=== PATIENT | female | born 1980 | race Two or more races ===

== ENCOUNTER 2020-12-11 11:06 | Inpatient (IN) | payer OTHER, SELFPAY ==
[~2020-12-11] VITALS: Ht 154.9 cm; Wt 121.0 kg
[2020-12-11 11:43] LABS: BASOPHILS % (AUTO) 0 % (0-1); EOSINOPHILS % (AUTO) 3 % (1-7); LYMPHOCYTES % (AUTO) 20 % (22-44); MEAN CORPUSCULAR HEMOGLOBIN 27.4 pg (27.0-34.8); MONOCYTES % (AUTO) 6 % (2-9); NEUTROPHILS % (AUTO) 71 % (42-75); PLATELET COUNT 373 x10^3/uL (130-400); RED BLOOD COUNT 4.43 x10^6/uL (3.82-5.3)
[2020-12-11 11:56] LABS: ALANINE AMINOTRANSFERASE 94 U/L (12-78); ALBUMIN 2.6 g/dL (3.4-5.0); ANION GAP 16 mmol/L (5-15); CALCIUM 8.9 mg/dL (8.5-10.1); CHLORIDE 106 mmol/L (98-107); CREATININE 0.86 mg/dL (0.55-1.02)
[2020-12-11 12:00] LABS: ALKALINE PHOSPHATASE 62 U/L (45-117); BILIRUBIN,TOTAL 0.6 mg/dL (0.2-1.0); TOTAL PROTEIN 7.3 g/dL (6.4-8.2); TROPONIN I < 0.015 ng/mL (0.000-0.045)
--- NOTE | 2020-12-11 12:56 | NUR ---
pt to room at this time
[2020-12-11] MEDS ORDERED: SODIUM CHLORIDE 0.9% 1,000ML IVBOLUS ONE ×2 (14:30→16:30)
--- NOTE | 2020-12-11 15:12 | NUR ---
PT TO RADIOLOGY WITH TECH TRANSPORT
[2020-12-11 15:17] LABS: MICROSCOPIC INDICATED
[2020-12-11] MEDS ORDERED: OMNIPAQUE 350 MG/ML, 100ML BOTTLE ONE (15:24)
--- NOTE | 2020-12-11 15:56 | NUR ---
US AT BEDSIDE.
--- NOTE | 2020-12-11 15:56 | NUR ---
PIV IS IN LEFT AC, FLUSHES W/O DIFFICULTY, IVF PLACED ON PUMP FLUIDS NOT FLOWING ON FREE FLOW 2/2 TO PT BENDING ARM.
[2020-12-11 16:42] LABS: HCT (SEDRATE) 36.9 % (34.6-47.8)
--- NOTE | 2020-12-11 16:53 | NUR ---
report to mac escobar.
[2020-12-11] MEDS ORDERED: DOCUSATE 100 MG CAPSULE PO PRN (18:00)
[2020-12-11] MEDS ORDERED: ENALAPRILAT 1.25 MG/ML, 2ML IVPush PRN (18:00)
[2020-12-11] MEDS ORDERED: POLYETHYLENE GLYCOL 17 GM PACKET PO PRN (18:00)
[2020-12-11] MEDS ORDERED: LABETALOL 5MG/ML, 20ML IVPush PRN (18:00)
[2020-12-11 18:05] VITALS: BP 112/71
[2020-12-11] MEDS ORDERED: METO-282 PO (18:32)
[2020-12-11] MEDS ORDERED: AMOX1TAB64 PO (18:32)
[2020-12-11] MEDS ORDERED: LOSA50TA14 PO (18:32)
[2020-12-11] MEDS ORDERED: NYST1POW5 TP (18:35)
[2020-12-11] MEDS ORDERED: ACET325C6 PO (18:35)
[2020-12-11 18:42] LABS: ANTISTREPTOLYSIN-O TITER 200 IU/mL
[2020-12-11 19:10] LABS: TROPONIN I < 0.015 ng/mL (0.000-0.045)
[2020-12-11 19:25] VITALS: BP 104/69
[2020-12-11] MEDS: AMPICILLIN/SULBACTAM 3 GM in SODIUM CHLORIDE 0.9% 100 ML IV SCH (19:48)
[2020-12-11] MEDS: ENOXAPARIN 30 MG/0.3 ML SQ SCH (20:18)
[2020-12-12 00:09] LABS: TROPONIN I < 0.015 ng/mL (0.000-0.045)
[2020-12-12 00:30] VITALS: BP 104/68
[2020-12-12] MEDS: AMPICILLIN/SULBACTAM 3 GM in SODIUM CHLORIDE 0.9% 100 ML IV SCH ×4 (01:30→20:00)
[2020-12-12 05:10] LABS: BASOPHILS % (AUTO) 1 % (0-1); EOSINOPHILS % (AUTO) 2 % (1-7); LYMPHOCYTES % (AUTO) 17 % (22-44); MEAN CORPUSCULAR HEMOGLOBIN 27.4 pg (27.0-34.8); MEAN CORPUSCULAR HGB CONC 32.4 g/dL (32.4-35.8); MEAN PLATELET VOLUME 8.3 fL (7.4-10.4); MONOCYTES % (AUTO) 8 % (2-9); NEUTROPHILS % (AUTO) 72 % (42-75); PLATELET COUNT 335 x10^3/uL (130-400); RED BLOOD COUNT 4.04 x10^6/uL (3.82-5.3); RED CELL DISTRIBUTION WIDTH 18.2 % (9.6-15.2)
[2020-12-12 05:15] LABS: CHLORIDE 106 mmol/L (98-107)
[2020-12-12 05:32] LABS: ALANINE AMINOTRANSFERASE 70 U/L (12-78); ALBUMIN 2.2 g/dL (3.4-5.0); ALKALINE PHOSPHATASE 59 U/L (45-117); ANION GAP 16 mmol/L (5-15); BILIRUBIN,TOTAL 0.5 mg/dL (0.2-1.0); CALCIUM 8.3 mg/dL (8.5-10.1); TOTAL PROTEIN 6.7 g/dL (6.4-8.2)
[2020-12-12 07:29] VITALS: BP 93/57
[2020-12-12] MEDS: METOPROLOL SUCCINATE 25 MG TAB.ER.24H PO SCH (07:57)
[2020-12-12] MEDS: ENOXAPARIN 30 MG/0.3 ML SQ SCH ×2 (08:18→20:01)
[2020-12-12] MEDS: LOSARTAN 50MG TABLET PO SCH (09:00)
[2020-12-12 12:35] VITALS: BP 118/75
[2020-12-12 13:09] LABS: ABSOLUTE RETICS # 0.098 x10^6/uL (0.5-2.5); HCT (SEDRATE) 32.9 % (34.6-47.8); RED BLOOD COUNT 3.91 x10^6/uL (3.82-5.3); RETICULOCYTE COUNT % 2.51 % (0.5-1.5)
[2020-12-12 13:28] LABS: CALCIUM 8.5 mg/dL (8.5-10.1)
[2020-12-12 19:06] VITALS: BP 119/76
[2020-12-13 00:51] VITALS: BP 105/66
[2020-12-13] MEDS: AMPICILLIN/SULBACTAM 3 GM in SODIUM CHLORIDE 0.9% 100 ML IV SCH ×2 (02:22→07:43)
[2020-12-13 05:53] LABS: BASOPHILS % (AUTO) 1 % (0-1); EOSINOPHILS % (AUTO) 3 % (1-7); LYMPHOCYTES % (AUTO) 22 % (22-44); MEAN CORPUSCULAR HEMOGLOBIN 27.7 pg (27.0-34.8); MEAN CORPUSCULAR HGB CONC 32.9 g/dL (32.4-35.8); MONOCYTES % (AUTO) 11 % (2-9); NEUTROPHILS % (AUTO) 63 % (42-75); PLATELET COUNT 358 x10^3/uL (130-400); RED BLOOD COUNT 3.73 x10^6/uL (3.82-5.3); RED CELL DISTRIBUTION WIDTH 17.6 % (9.6-15.2)
[2020-12-13 06:02] LABS: CHLORIDE 104 mmol/L (98-107)
[2020-12-13 06:10] LABS: ALANINE AMINOTRANSFERASE 53 U/L (12-78); ALBUMIN 2.2 g/dL (3.4-5.0); ALKALINE PHOSPHATASE 53 U/L (45-117); ANION GAP 18 mmol/L (5-15); BILIRUBIN,TOTAL 0.7 mg/dL (0.2-1.0); CALCIUM 8.3 mg/dL (8.5-10.1); CREATININE 0.79 mg/dL (0.55-1.02); TOTAL PROTEIN 6.5 g/dL (6.4-8.2)
[2020-12-13 06:49] VITALS: BP 109/69
[2020-12-13] MEDS: METOPROLOL SUCCINATE 25 MG TAB.ER.24H PO SCH (07:49)
[2020-12-13] MEDS: LOSARTAN 50MG TABLET PO SCH (07:49)
[2020-12-13] MEDS: ENOXAPARIN 30 MG/0.3 ML SQ SCH ×2 (07:51→19:58)
[2020-12-13] MEDS ORDERED: POTASSIUM CHLORIDE 20 MEQ TAB.ER.PRT PO ONE (08:00)
[2020-12-13 09:47] LABS: MICROSCOPIC INDICATED
[2020-12-13 09:50] LABS: POTASSIUM,URINE RANDOM 46 mmol/L
[2020-12-13 09:55] LABS: CHLORIDE,URINE RANDOM < 10 mmol/L; SODIUM,URINE RANDOM < 5 mmol/L
[2020-12-13 13:47] VITALS: BP 70/39
[2020-12-13] MEDS: SODIUM CHLORIDE 0.9% 1,000 ML IV SCH ×3 (14:00→16:48)
[2020-12-13 15:42] VITALS: BP 95/60
[2020-12-13] MEDS: ACETAMINOPHEN 325 MG TABLET PO PRN (16:18)
[2020-12-13 20:05] VITALS: BP 71/45
[2020-12-14 01:05] VITALS: BP 99/64
[2020-12-14] MEDS: SODIUM CHLORIDE 0.9% 1,000 ML IV SCH ×2 (02:22→11:59)
[2020-12-14 05:39] LABS: INTERNATIONAL NORMALIZED RATIO 1.18 (0.93-1.1); PROTHROMBIN TIME 12.6 Seconds (9.6-11.5)
[2020-12-14 05:41] LABS: BASOPHILS % (AUTO) 1 % (0-1); EOSINOPHILS % (AUTO) 4 % (1-7); LYMPHOCYTES % (AUTO) 23 % (22-44); MEAN CORPUSCULAR HEMOGLOBIN 27.8 pg (27.0-34.8); MEAN CORPUSCULAR HGB CONC 33.3 g/dL (32.4-35.8); MEAN PLATELET VOLUME 8.1 fL (7.4-10.4); MONOCYTES % (AUTO) 10 % (2-9); NEUTROPHILS % (AUTO) 62 % (42-75); PLATELET COUNT 353 x10^3/uL (130-400); RED BLOOD COUNT 3.69 x10^6/uL (3.82-5.3); RED CELL DISTRIBUTION WIDTH 17.6 % (9.6-15.2)
[2020-12-14 05:43] LABS: ALANINE AMINOTRANSFERASE 44 U/L (12-78); ALBUMIN 2.1 g/dL (3.4-5.0); ANION GAP 15 mmol/L (5-15); CALCIUM 8.3 mg/dL (8.5-10.1); CHLORIDE 107 mmol/L (98-107)
[2020-12-14 05:46] LABS: ALKALINE PHOSPHATASE 51 U/L (45-117); BILIRUBIN,TOTAL 0.5 mg/dL (0.2-1.0); CREATININE 0.83 mg/dL (0.55-1.02); TOTAL PROTEIN 6.5 g/dL (6.4-8.2)
[2020-12-14 07:06] VITALS: BP 92/57
[2020-12-14] MEDS: ENOXAPARIN 30 MG/0.3 ML SQ SCH ×2 (08:10→21:25)
[2020-12-14 08:11] VITALS: BP 112/70
[2020-12-14] MEDS ORDERED: FENTANYL PF 100 MCG/2ML ONE (09:05)
[2020-12-14] MEDS ORDERED: NALOXONE 1 MG/ML, 2ML ONE (09:05)
[2020-12-14] MEDS ORDERED: MIDAZOLAM 1 MG/ML, 5ML ONE (09:05)
[2020-12-14] MEDS ORDERED: FLUMAZENIL 0.1 MG/1 ML, 5ML ONE (09:05)
[2020-12-14 10:44] VITALS: BP 105/68
[2020-12-14] MEDS ORDERED: IRON SUCROSE COMPLEX 100MG/5ML IV SCH (12:30)
[2020-12-14 13:38] VITALS: BP 96/63
[2020-12-14] MEDS: POTASSIUM CHLORIDE IV SCH (15:18)
[2020-12-14] MEDS: ERGOCALCIFEROL 50,000 UNIT CAPSULE PO SCH (15:18)
[2020-12-14] MEDS: DEXTROSE 5% IV SCH (15:18)
[2020-12-14] MEDS: SODIUM BICARB 8.4% IV SCH (15:18)
[2020-12-14 19:58] VITALS: BP 105/68
[2020-12-15 01:12] VITALS: BP 103/61
[2020-12-15] MEDS: DEXTROSE 5% IV SCH ×2 (05:09→14:11)
[2020-12-15] MEDS: POTASSIUM CHLORIDE IV SCH ×2 (05:09→14:11)
[2020-12-15] MEDS: SODIUM BICARB 8.4% IV SCH ×2 (05:09→14:11)
[2020-12-15 05:19] LABS: BASOPHILS % (AUTO) 1 % (0-1); EOSINOPHILS % (AUTO) 3 % (1-7); LYMPHOCYTES % (AUTO) 24 % (22-44); MEAN CORPUSCULAR HEMOGLOBIN 27.8 pg (27.0-34.8); MEAN CORPUSCULAR HGB CONC 33.5 g/dL (32.4-35.8); MEAN PLATELET VOLUME 8.2 fL (7.4-10.4); MONOCYTES % (AUTO) 13 % (2-9); NEUTROPHILS % (AUTO) 60 % (42-75); PLATELET COUNT 377 x10^3/uL (130-400); RED BLOOD COUNT 3.63 x10^6/uL (3.82-5.3); RED CELL DISTRIBUTION WIDTH 18.1 % (9.6-15.2)
[2020-12-15 05:32] LABS: ANION GAP 14 mmol/L (5-15); CALCIUM 8.4 mg/dL (8.5-10.1); CHLORIDE 102 mmol/L (98-107)
[2020-12-15 05:38] LABS: ALANINE AMINOTRANSFERASE 39 U/L (12-78); ALKALINE PHOSPHATASE 49 U/L (45-117); BILIRUBIN,TOTAL 0.5 mg/dL (0.2-1.0); CREATININE 0.81 mg/dL (0.55-1.02); TOTAL PROTEIN 6.2 g/dL (6.4-8.2)
[2020-12-15] MEDS: CEFTRIAXONE 2 GM in DEXTROSE 5% 50 ML IVPB SCH (07:14)
[2020-12-15 08:25] VITALS: BP 104/63
[2020-12-15] MEDS: ENOXAPARIN 30 MG/0.3 ML SQ SCH ×2 (08:53→20:17)
[2020-12-15] MEDS: ALLOPURINOL 300 MG TABLET PO SCH (10:16)
[2020-12-15 14:52] VITALS: BP 97/54
[2020-12-15 20:12] VITALS: BP 100/64
[2020-12-16] VITALS (8 sets, daily range): BP systolic 73–115; BP diastolic 42–73
[2020-12-16] MEDS: POTASSIUM CHLORIDE IV SCH (03:59)
[2020-12-16] MEDS: DEXTROSE 5% IV SCH (03:59)
[2020-12-16] MEDS: SODIUM BICARB 8.4% IV SCH (03:59)
[2020-12-16 06:05] LABS: MEAN CORPUSCULAR HEMOGLOBIN 27.6 pg (27.0-34.8); MEAN CORPUSCULAR HGB CONC 33.6 g/dL (32.4-35.8); MEAN PLATELET VOLUME 8.4 fL (7.4-10.4); PLATELET COUNT 372 x10^3/uL (130-400); RED BLOOD COUNT 3.46 x10^6/uL (3.82-5.3)
[2020-12-16 06:35] LABS: CALCIUM 7.8 mg/dL (8.5-10.1); CHLORIDE 98 mmol/L (98-107)
[2020-12-16 06:43] LABS: ALANINE AMINOTRANSFERASE 33 U/L (12-78); ALBUMIN 1.8 g/dL (3.4-5.0); ALKALINE PHOSPHATASE 44 U/L (45-117); ANION GAP 11 mmol/L (5-15); BILIRUBIN,TOTAL 0.5 mg/dL (0.2-1.0); CREATININE 0.96 mg/dL (0.55-1.02); TOTAL PROTEIN 5.7 g/dL (6.4-8.2)
[2020-12-16 06:44] LABS: <PLATELET ESTIMATE> ADEQUATE; <PLT MORPHOLOGY> NORMAL PLT MORPH; <RBC MORPHOLOGY> NORMAL; BAND#(MANUAL) 0.41 x10^3/uL; BANDS%(MANUAL) 8 % (0-7); EOS% (MANUAL) 2 % (1-7); LYMPH#(MANUAL) 0.56 x10^3/uL (1-3.4); LYMPHS% (MANUAL) 11 % (22-44); METAMYELOCYTES% (MANUAL) 2 % (0-1); MONOS#(MANUAL) 0.61 x10^3/uL (0.3-2.7); MONOS% (MANUAL) 12 % (2-9); SEG#(MANUAL) 3.32 x10^3/uL (1.8-6.8); SEGS% (MANUAL) 65 % (42-75)
[2020-12-16] MEDS: CEFTRIAXONE 2 GM in DEXTROSE 5% 50 ML IVPB SCH (07:44)
[2020-12-16] MEDS: ALLOPURINOL 300 MG TABLET PO SCH (07:45)
[2020-12-16] MEDS: ENOXAPARIN 30 MG/0.3 ML SQ SCH ×2 (07:45→20:00)
[2020-12-16] MEDS ORDERED: POTASSIUM CHLORIDE 20 MEQ TAB.ER.PRT PO SCH (08:00)
[2020-12-16] MEDS ORDERED: CARVEDILOL 3.125 MG TABLET PO SCH (08:30)
[2020-12-16] MEDS ORDERED: FUROSEMIDE 40 MG/4 ML IV ONE (12:30)
[2020-12-16] MEDS: POTASSIUM CHLORIDE 20 MEQ TAB.ER.PRT PO SCH ×3 (12:40→19:57)
[2020-12-16] MEDS: POTASSIUM CHLORIDE 20 MEQ in SODIUM CHLORIDE 0.9% 1,000 ML IV SCH (12:41)
[2020-12-16] MEDS ORDERED: SODIUM CHLORIDE 0.9%, 500ML IVBOLUS ONE (13:30)
[2020-12-16] MEDS ORDERED: ALBUMIN HUMAN 25% 100 ML IV ONE (13:30)
[2020-12-16] MEDS: MIDODRINE 5 MG TABLET PO SCH ×2 (15:07→19:59)
[2020-12-16] MEDS: GABAPENTIN 300 MG CAPSULE PO PRN (15:21)
[2020-12-16] MEDS ORDERED: FUROSEMIDE 40 MG/4 ML ONE (20:02)
[2020-12-17] VITALS (7 sets, daily range): BP systolic 92–152; BP diastolic 56–78
[2020-12-17] MEDS: POTASSIUM CHLORIDE 20 MEQ in SODIUM CHLORIDE 0.9% 1,000 ML IV SCH (02:53)
[2020-12-17 05:38] LABS: MEAN CORPUSCULAR HEMOGLOBIN 27.7 pg (27.0-34.8); MEAN CORPUSCULAR HGB CONC 33.1 g/dL (32.4-35.8); MEAN PLATELET VOLUME 8.5 fL (7.4-10.4); PLATELET COUNT 389 x10^3/uL (130-400); RED BLOOD COUNT 3.35 x10^6/uL (3.82-5.3); RED CELL DISTRIBUTION WIDTH 18.3 % (9.6-15.2)
[2020-12-17 05:44] LABS: ALBUMIN 2.1 g/dL (3.4-5.0); ANION GAP 11 mmol/L (5-15); CALCIUM 7.6 mg/dL (8.5-10.1); CHLORIDE 104 mmol/L (98-107)
[2020-12-17 05:47] LABS: ALANINE AMINOTRANSFERASE 32 U/L (12-78); ALKALINE PHOSPHATASE 44 U/L (45-117); BILIRUBIN,TOTAL 0.7 mg/dL (0.2-1.0); CREATININE 0.95 mg/dL (0.55-1.02); TOTAL PROTEIN 5.8 g/dL (6.4-8.2)
[2020-12-17 06:02] LABS: BAND#(MANUAL) 0.59 x10^3/uL; BANDS%(MANUAL) 10 % (0-7); EOS#(MANUAL) 0.18 x10^3/uL (0.0-0.4); EOS% (MANUAL) 3 % (1-7); LYMPH#(MANUAL) 0.41 x10^3/uL (1-3.4); LYMPHS% (MANUAL) 7 % (22-44); METAMYELOCYTES# (MANUAL) 0.18 x10^3/uL (0-0); METAMYELOCYTES% (MANUAL) 3 % (0-1); MONOS#(MANUAL) 0.53 x10^3/uL (0.3-2.7); MONOS% (MANUAL) 9 % (2-9); MYELOCYTES# (MANUAL) 0.06 x10^3/uL (0-0); MYELOCYTES% (MANUAL) 1 % (0-0); SEG#(MANUAL) 3.95 x10^3/uL (1.8-6.8); SEGS% (MANUAL) 67 % (42-75)
[2020-12-17 06:03] LABS: <PLATELET ESTIMATE> INCREASED; <PLT MORPHOLOGY> NORMAL PLT MORPH; ANISOCYTOSIS 1+
[2020-12-17 06:25] LABS: CLOSTRIDIUM DIFFICILE ANTIGEN NEGATIVE; CLOSTRIDIUM DIFFICILE TOXIN NEGATIVE (Negative)
[2020-12-17] MEDS ORDERED: MAGNESIUM SULFATE PMX 2GM/50ML 50 ML IV ONE (07:30)
[2020-12-17] MEDS ORDERED: POTASSIUM CHLORIDE 20 MEQ TAB.ER.PRT PO ONE (07:30)
[2020-12-17] MEDS: ENOXAPARIN 30 MG/0.3 ML SQ SCH ×2 (07:59→22:01)
[2020-12-17] MEDS: ONDANSETRON 2MG/ML, 2ML IVPush PRN ×3 (08:15→21:57)
[2020-12-17] MEDS: MIDODRINE 5 MG TABLET PO SCH ×3 (09:12→22:02)
[2020-12-17] MEDS: GABAPENTIN 300 MG CAPSULE PO PRN (09:15)
[2020-12-17] MEDS: ALLOPURINOL 300 MG TABLET PO SCH (09:16)
[2020-12-17] MEDS: CEFTRIAXONE 2 GM in DEXTROSE 5% 50 ML IVPB SCH (10:11)
[2020-12-17] MEDS: ALBUMIN HUMAN 25% 100 ML IV SCH ×3 (10:50→22:03)
[2020-12-17] MEDS: POTASSIUM CHLORIDE 20 MEQ TAB.ER.PRT PO SCH ×4 (10:50→22:02)
[2020-12-17] MEDS: FUROSEMIDE 20 MG/2 ML IV SCH (12:36)
[2020-12-17] MEDS: LOPERAMIDE 2 MG CAPSULE PO PRN ×2 (12:36→22:01)
[2020-12-18] VITALS (7 sets, daily range): BP systolic 100–129; BP diastolic 60–82
[2020-12-18] MEDS: PROMETHAZINE 25 MG/ML, 1ML IM PRN ×3 (00:48→16:49)
[2020-12-18] MEDS: ALBUMIN HUMAN 25% 100 ML IV SCH ×2 (08:28→16:47)
[2020-12-18] MEDS: CEFTRIAXONE 2 GM in DEXTROSE 5% 50 ML IVPB SCH (08:29)
[2020-12-18] MEDS: LOPERAMIDE 2 MG CAPSULE PO PRN (08:29)
[2020-12-18] MEDS: ENOXAPARIN 30 MG/0.3 ML SQ SCH ×2 (08:29→20:01)
[2020-12-18] MEDS: FUROSEMIDE 20 MG/2 ML IV SCH (08:29)
[2020-12-18] MEDS: POTASSIUM CHLORIDE 20 MEQ TAB.ER.PRT PO SCH (08:29)
[2020-12-18] MEDS: ALLOPURINOL 300 MG TABLET PO SCH (08:30)
[2020-12-18] MEDS: MIDODRINE 5 MG TABLET PO SCH ×3 (08:30→20:01)
[2020-12-18 13:17] LABS: ANION GAP 12 mmol/L (5-15); CALCIUM 8.3 mg/dL (8.5-10.1); CHLORIDE 103 mmol/L (98-107)
[2020-12-18] MEDS: ACETAMINOPHEN 325 MG TABLET PO PRN (16:47)
[2020-12-18] MEDS ORDERED: ACETAMINOPHEN 650 MG SUPP PR ONE (19:00)
[2020-12-18] MEDS ORDERED: POTASSIUM CHLORIDE 40 MEQ in SODIUM CHLORIDE 0.9% 500 ML IV ONE (20:00)
[2020-12-18] MEDS ORDERED: MAGNESIUM SULFATE PMX 4GM/100M 100 ML IVPB ONE (20:00)
[2020-12-18] MEDS: ONDANSETRON 2MG/ML, 2ML IVPush PRN (20:05)
[2020-12-19] VITALS (7 sets, daily range): BP systolic 105–139; BP diastolic 65–95
[2020-12-19] MEDS: ALBUMIN HUMAN 25% 100 ML IV SCH ×4 (00:13→20:14)
[2020-12-19 05:24] LABS: BASOPHILS % (AUTO) 0 % (0-1); EOSINOPHILS % (AUTO) 2 % (1-7); LYMPHOCYTES % (AUTO) 13 % (22-44); MEAN CORPUSCULAR HGB CONC 32.8 g/dL (32.4-35.8); MEAN PLATELET VOLUME 8.2 fL (7.4-10.4); MONOCYTES % (AUTO) 11 % (2-9); NEUTROPHILS % (AUTO) 74 % (42-75); PLATELET COUNT 300 x10^3/uL (130-400); RED BLOOD COUNT 3.23 x10^6/uL (3.82-5.3); RED CELL DISTRIBUTION WIDTH 18.5 % (9.6-15.2)
[2020-12-19 05:31] LABS: ANION GAP 12 mmol/L (5-15); CALCIUM 7.8 mg/dL (8.5-10.1); CHLORIDE 106 mmol/L (98-107); CREATININE 0.85 mg/dL (0.55-1.02)
[2020-12-19] MEDS: CEFTRIAXONE 2 GM in DEXTROSE 5% 50 ML IVPB SCH (08:26)
[2020-12-19] MEDS: FUROSEMIDE 20 MG/2 ML IV SCH (08:27)
[2020-12-19] MEDS: ENOXAPARIN 30 MG/0.3 ML SQ SCH ×2 (08:27→20:16)
[2020-12-19] MEDS: ALLOPURINOL 300 MG TABLET PO SCH (08:27)
[2020-12-19] MEDS: MIDODRINE 5 MG TABLET PO SCH ×3 (08:27→20:16)
[2020-12-19] MEDS ORDERED: SULFAMETH./TRIMETHOPRIM SS 400MG/80MG TABLET PO ONE (09:00)
[2020-12-19] MEDS: PROMETHAZINE 25 MG/ML, 1ML IM PRN (09:30)
[2020-12-19] MEDS: GABAPENTIN 300 MG CAPSULE PO PRN ×2 (09:30→17:57)
[2020-12-19] MEDS: POTASSIUM CHLORIDE 20 MEQ in SODIUM CHLORIDE 0.9% 250 ML IV SCH ×2 (10:00→12:21)
[2020-12-19 10:25] LABS: MICROSCOPIC NOT IND
[2020-12-19] MEDS ORDERED: AMPICILLIN/SULBACTAM 3 GM in SODIUM CHLORIDE 0.9% 100 ML IV SCH (12:30)
[2020-12-19] MEDS: ACETAMINOPHEN 325 MG TABLET PO PRN (14:58)
[2020-12-19] MEDS ORDERED: SODIUM CHLORIDE 0.9%, 500ML IVBOLUS ONE (15:30)
[2020-12-19 15:56] LABS: ANION GAP 13 mmol/L (5-15); CALCIUM 8.2 mg/dL (8.5-10.1); CHLORIDE 107 mmol/L (98-107); CREATININE 0.88 mg/dL (0.55-1.02)
[2020-12-19] MEDS ORDERED: SODIUM CHLORIDE 0.9% 1,000 ML IV ONE (18:00)
[2020-12-19] MEDS ORDERED: SODIUM CHLORIDE 0.9% 1,000ML IVBOLUS ONE (20:30)
[2020-12-19] MEDS ORDERED: ACETAMINOPHEN 500 MG TABLET PO ONE (20:30)
[2020-12-19] MEDS ORDERED: VANCOMYCIN PER PHARMACY MC PRN (20:30)
[2020-12-19] MEDS ORDERED: PHARMACOKINETIC MONITORING MC PRN (20:30)
[2020-12-19] MEDS ORDERED: VANCOMYCIN 2,300 MG in SODIUM CHLORIDE 0.9% 500 ML IV ONE (21:00)
[2020-12-19] MEDS: PIPERACILLIN/TAZO 3.375 GM in DEXTROSE 5% 50 ML IV SCH (21:22)
[2020-12-19] MEDS: SODIUM CHLORIDE 0.9% 1,000 ML IV SCH (23:00)
[2020-12-20 00:02] VITALS: BP 100/63
[2020-12-20] MEDS ORDERED: SODIUM CHLORIDE 0.9%, 500ML IVBOLUS ONE (01:30)
[2020-12-20 03:36] LABS: BASOPHILS % (AUTO) 0 % (0-1); EOSINOPHILS % (AUTO) 1 % (1-7); LYMPHOCYTES % (AUTO) 8 % (22-44); MEAN CORPUSCULAR HEMOGLOBIN 27.4 pg (27.0-34.8); MONOCYTES % (AUTO) 3 % (2-9); NEUTROPHILS % (AUTO) 88 % (42-75); PLATELET COUNT 311 x10^3/uL (130-400); RED BLOOD COUNT 3.81 x10^6/uL (3.82-5.3); RED CELL DISTRIBUTION WIDTH 18.6 % (9.6-15.2)
[2020-12-20] MEDS: PIPERACILLIN/TAZO 3.375 GM in DEXTROSE 5% 50 ML IV SCH ×3 (03:39→18:18)
[2020-12-20 03:48] LABS: ANION GAP 14 mmol/L (5-15); CALCIUM 7.8 mg/dL (8.5-10.1); CHLORIDE 111 mmol/L (98-107)
[2020-12-20 07:34] VITALS: BP 112/72
[2020-12-20] MEDS ORDERED: VANCOMYCIN 2,000 MG in SODIUM CHLORIDE 0.9% 500 ML IV SCH (09:00)
[2020-12-20] MEDS ORDERED: SULFAMETH./TRIMETHOPRIM SS 400MG/80MG TABLET PO SCH (09:00)
[2020-12-20] MEDS: ENOXAPARIN 30 MG/0.3 ML SQ SCH ×2 (09:46→20:34)
[2020-12-20] MEDS: FUROSEMIDE 20 MG/2 ML IV SCH (09:51)
[2020-12-20] MEDS: PROMETHAZINE 25 MG/ML, 1ML IM PRN (09:52)
[2020-12-20] MEDS ORDERED: MAGNESIUM SULFATE PMX 2GM/50ML 50 ML IV ONE (10:00)
[2020-12-20] MEDS ORDERED: POTASSIUM PHOSPHATE 44 MEQ in SODIUM CHLORIDE 0.9% 500 ML IV ONE (10:00)
[2020-12-20] MEDS ORDERED: OMNIPAQUE 350 MG/ML, 150 ML BOTTLE ONE (10:59)
[2020-12-20] MEDS: ACETAMINOPHEN 325 MG TABLET PO PRN ×3 (11:04→16:52)
[2020-12-20] MEDS: MIDODRINE 5 MG TABLET PO SCH ×3 (11:09→20:33)
[2020-12-20] MEDS: LOPERAMIDE 2 MG CAPSULE PO PRN (11:09)
[2020-12-20] MEDS: POTASSIUM CHLORIDE 20 MEQ TAB.ER.PRT PO SCH (11:09)
[2020-12-20] MEDS: ALLOPURINOL 300 MG TABLET PO SCH (11:10)
[2020-12-20] MEDS: ALBUMIN HUMAN 25% 100 ML IV SCH ×3 (11:10→21:58)
[2020-12-20 12:59] VITALS: BP 113/70
[2020-12-20] MEDS: DAPTOMYCIN 500 MG in SODIUM CHLORIDE 0.9% 100 ML IV SCH (13:55)
[2020-12-20] MEDS: SODIUM CHLORIDE 0.9% 1,000 ML IV SCH ×2 (13:55→21:00)
[2020-12-20 19:34] VITALS: BP 100/62
[2020-12-21] MEDS: PIPERACILLIN/TAZO 3.375 GM in DEXTROSE 5% 50 ML IV SCH ×4 (00:38→20:11)
[2020-12-21 01:16] VITALS: BP 98/63
[2020-12-21 04:33] LABS: BASOPHILS % (AUTO) 1 % (0-1); EOSINOPHILS % (AUTO) 4 % (1-7); LYMPHOCYTES % (AUTO) 11 % (22-44); MEAN CORPUSCULAR HEMOGLOBIN 27.9 pg (27.0-34.8); MEAN PLATELET VOLUME 8.4 fL (7.4-10.4); MONOCYTES % (AUTO) 7 % (2-9); NEUTROPHILS % (AUTO) 78 % (42-75); PLATELET COUNT 239 x10^3/uL (130-400); RED BLOOD COUNT 2.78 x10^6/uL (3.82-5.3)
[2020-12-21 05:02] LABS: ANION GAP 13 mmol/L (5-15); CALCIUM 7.7 mg/dL (8.5-10.1); CHLORIDE 117 mmol/L (98-107); CREATININE 0.78 mg/dL (0.55-1.02)
[2020-12-21 05:14] LABS: HCT (SEDRATE) 23.5 % (34.6-47.8)
[2020-12-21] MEDS: SODIUM CHLORIDE 0.9% 1,000 ML IV SCH (07:30)
[2020-12-21 08:01] VITALS: BP 96/58
[2020-12-21] MEDS: ALBUMIN HUMAN 25% 100 ML IV SCH (08:32)
[2020-12-21] MEDS: SPIRONOLACTONE 25 MG TABLET PO SCH (08:33)
[2020-12-21] MEDS: POTASSIUM CHLORIDE 20 MEQ TAB.ER.PRT PO SCH (08:33)
[2020-12-21] MEDS: ALLOPURINOL 300 MG TABLET PO SCH (08:33)
[2020-12-21] MEDS: MIDODRINE 5 MG TABLET PO SCH ×3 (08:33→20:20)
[2020-12-21] MEDS: FUROSEMIDE 20 MG/2 ML IV SCH (08:33)
[2020-12-21] MEDS: ENOXAPARIN 30 MG/0.3 ML SQ SCH ×2 (08:34→20:26)
[2020-12-21] MEDS: POTASSIUM CHLORIDE 20 MEQ in SODIUM CHLORIDE 0.9% 250 ML IV SCH (11:08)
[2020-12-21] MEDS: ACETAMINOPHEN 325 MG TABLET PO PRN (12:49)
[2020-12-21] MEDS: LOPERAMIDE 2 MG CAPSULE PO PRN (12:49)
[2020-12-21] MEDS: ERGOCALCIFEROL 50,000 UNIT CAPSULE PO SCH (12:49)
[2020-12-21] MEDS: DAPTOMYCIN 500 MG in SODIUM CHLORIDE 0.9% 100 ML IV SCH (16:15)
[2020-12-21 16:16] VITALS: BP 107/65
[2020-12-21] MEDS ORDERED: MAGNESIUM SULFATE PMX 2GM/50ML 50 ML IV ONE (16:30)
[2020-12-21] MEDS ORDERED: POTASSIUM CHLORIDE 40 MEQ in SODIUM CHLORIDE 0.9% 500 ML IV ONE (16:30)
[2020-12-21 20:00] VITALS: BP 98/63
[2020-12-21] MEDS ORDERED: POTASSIUM CHLORIDE 20 MEQ TAB.ER.PRT PO ONE (20:00)
[2020-12-21] MEDS: PROMETHAZINE 25 MG/ML, 1ML IM PRN (20:29)
[2020-12-22 01:22] VITALS: BP 99/63
[2020-12-22] MEDS: PIPERACILLIN/TAZO 3.375 GM in DEXTROSE 5% 50 ML IV SCH ×2 (02:28→09:00)
[2020-12-22] MEDS: POTASSIUM CHLORIDE 20 MEQ in SODIUM CHLORIDE 0.9% 250 ML IV SCH ×4 (03:44→22:18)
[2020-12-22 06:24] LABS: ALBUMIN 3.3 g/dL (3.4-5.0); ANION GAP 10 mmol/L (5-15); CALCIUM 7.9 mg/dL (8.5-10.1); CHLORIDE 119 mmol/L (98-107); CREATININE 0.85 mg/dL (0.55-1.02)
[2020-12-22 06:26] LABS: BASOPHILS % (AUTO) 1 % (0-1); EOSINOPHILS % (AUTO) 4 % (1-7); LYMPHOCYTES % (AUTO) 18 % (22-44); MEAN CORPUSCULAR HGB CONC 32.6 g/dL (32.4-35.8); MEAN PLATELET VOLUME 8.5 fL (7.4-10.4); MONOCYTES % (AUTO) 7 % (2-9); NEUTROPHILS % (AUTO) 70 % (42-75); PLATELET COUNT 259 x10^3/uL (130-400); RED CELL DISTRIBUTION WIDTH 19.4 % (9.6-15.2)
[2020-12-22 06:55] VITALS: BP 113/70
[2020-12-22] MEDS: SODIUM CHLORIDE 0.9% 1,000 ML IV SCH (09:00)
[2020-12-22] MEDS: ENOXAPARIN 30 MG/0.3 ML SQ SCH ×2 (09:01→22:00)
[2020-12-22] MEDS: MIDODRINE 5 MG TABLET PO SCH ×3 (09:02→22:00)
[2020-12-22] MEDS: POTASSIUM CHLORIDE 20 MEQ TAB.ER.PRT PO SCH (09:02)
[2020-12-22] MEDS: SPIRONOLACTONE 25 MG TABLET PO SCH (09:03)
[2020-12-22] MEDS: FUROSEMIDE 20 MG TABLET PO SCH (09:03)
[2020-12-22] MEDS: ALLOPURINOL 300 MG TABLET PO SCH (09:03)
[2020-12-22] MEDS ORDERED: POTASSIUM CHLORIDE 40 MEQ in SODIUM CHLORIDE 0.9% 500 ML IV ONE (12:00)
[2020-12-22 13:18] LABS: BILIRUBIN, DIRECT 1.1 mg/dL (0.1-0.2)
[2020-12-22 13:20] LABS: BILIRUBIN,INDIRECT 0.7 mg/dL (0.0-2.0); BILIRUBIN,TOTAL 1.8 mg/dL (0.2-1.0); TOTAL PROTEIN 5.9 g/dL (6.4-8.2)
[2020-12-22 13:22] LABS: ALBUMIN 3.3 g/dL (3.4-5.0)
[2020-12-22] MEDS: DAPTOMYCIN 500 MG in SODIUM CHLORIDE 0.9% 100 ML IV SCH (15:22)
[2020-12-22] MEDS ORDERED: D5%-0.45NACL+KCL 40MEQ 1,000 ML IV SCH (16:00)
[2020-12-22 21:57] VITALS: BP 104/66
[2020-12-22] MEDS: LOPERAMIDE 2 MG CAPSULE PO PRN (22:00)
[2020-12-22] MEDS: ONDANSETRON 2MG/ML, 2ML IVPush PRN (23:47)
[2020-12-23] MEDS: POTASSIUM CHLORIDE 20 MEQ in SODIUM CHLORIDE 0.9% 250 ML IV SCH ×3 (03:45→11:01)
[2020-12-23 03:46] VITALS: BP 149/80
[2020-12-23 05:18] LABS: BASOPHILS % (AUTO) 1 % (0-1); EOSINOPHILS % (AUTO) 3 % (1-7); LYMPHOCYTES % (AUTO) 17 % (22-44); MEAN CORPUSCULAR HEMOGLOBIN 28.4 pg (27.0-34.8); MEAN CORPUSCULAR HGB CONC 33.2 g/dL (32.4-35.8); MEAN PLATELET VOLUME 8.6 fL (7.4-10.4); MONOCYTES % (AUTO) 8 % (2-9); NEUTROPHILS % (AUTO) 71 % (42-75); PLATELET COUNT 257 x10^3/uL (130-400); RED BLOOD COUNT 2.95 x10^6/uL (3.82-5.3)
[2020-12-23] MEDS: ONDANSETRON 2MG/ML, 2ML IVPush PRN ×2 (05:19→15:59)
[2020-12-23 05:22] LABS: ANION GAP 10 mmol/L (5-15); CALCIUM 8.2 mg/dL (8.5-10.1); CHLORIDE 120 mmol/L (98-107)
[2020-12-23 05:28] LABS: ALANINE AMINOTRANSFERASE 47 U/L (12-78); ALKALINE PHOSPHATASE 61 U/L (45-117); BILIRUBIN,TOTAL 2.2 mg/dL (0.2-1.0); CREATININE 0.85 mg/dL (0.55-1.02); TOTAL PROTEIN 5.9 g/dL (6.4-8.2)
[2020-12-23] MEDS: LOPERAMIDE 2 MG CAPSULE PO PRN (05:33)
[2020-12-23 07:15] VITALS: BP 118/60
[2020-12-23] MEDS ORDERED: MAGNESIUM SULFATE PMX 2GM/50ML 50 ML IV ONE (08:00)
[2020-12-23] MEDS: SPIRONOLACTONE 25 MG TABLET PO SCH (08:47)
[2020-12-23] MEDS: FUROSEMIDE 20 MG TABLET PO SCH ×2 (08:49→21:55)
[2020-12-23] MEDS: ENOXAPARIN 30 MG/0.3 ML SQ SCH ×2 (08:51→21:56)
[2020-12-23] MEDS: ALLOPURINOL 300 MG TABLET PO SCH (09:15)
[2020-12-23] MEDS: MIDODRINE 5 MG TABLET PO SCH ×3 (09:15→21:54)
[2020-12-23] MEDS: GABAPENTIN 300 MG CAPSULE PO PRN (11:08)
[2020-12-23] MEDS: ACETAMINOPHEN 325 MG TABLET PO PRN (11:08)
[2020-12-23] MEDS: PROMETHAZINE 25 MG/ML, 1ML IM PRN (12:09)
[2020-12-23 12:25] VITALS: BP 134/82
[2020-12-23] MEDS ORDERED: POTASSIUM CHLORIDE 40 MEQ in SODIUM CHLORIDE 0.9% 500 ML IV ONE (13:00)
[2020-12-23] MEDS: DAPTOMYCIN 500 MG in SODIUM CHLORIDE 0.9% 100 ML IV SCH (13:29)
[2020-12-23 21:46] VITALS: BP 127/80
[2020-12-24 00:57] VITALS: BP 121/83
[2020-12-24] MEDS: GABAPENTIN 300 MG CAPSULE PO PRN (02:03)
[2020-12-24 05:33] LABS: BASOPHILS % (AUTO) 1 % (0-1); EOSINOPHILS % (AUTO) 2 % (1-7); LYMPHOCYTES % (AUTO) 15 % (22-44); MEAN CORPUSCULAR HEMOGLOBIN 28.4 pg (27.0-34.8); MEAN CORPUSCULAR HGB CONC 32.7 g/dL (32.4-35.8); MONOCYTES % (AUTO) 7 % (2-9); NEUTROPHILS % (AUTO) 76 % (42-75); PLATELET COUNT 278 x10^3/uL (130-400); RED BLOOD COUNT 3.14 x10^6/uL (3.82-5.3); RED CELL DISTRIBUTION WIDTH 19.7 % (9.6-15.2)
[2020-12-24 05:38] LABS: CHLORIDE 115 mmol/L (98-107)
[2020-12-24 05:47] LABS: ALANINE AMINOTRANSFERASE 37 U/L (12-78); ALBUMIN 2.9 g/dL (3.4-5.0); ALKALINE PHOSPHATASE 58 U/L (45-117); ANION GAP 11 mmol/L (5-15); BILIRUBIN,TOTAL 3.4 mg/dL (0.2-1.0); CALCIUM 8.8 mg/dL (8.5-10.1); CREATININE 0.89 mg/dL (0.55-1.02); TOTAL PROTEIN 5.6 g/dL (6.4-8.2)
[2020-12-24 07:20] VITALS: BP 113/75
[2020-12-24] MEDS: ENOXAPARIN 30 MG/0.3 ML SQ SCH ×2 (09:00→20:59)
[2020-12-24] MEDS ORDERED: POTASSIUM CHLORIDE 40 MEQ in SODIUM CHLORIDE 0.9% 500 ML IV ONE (09:00)
[2020-12-24] MEDS: SPIRONOLACTONE 25 MG TABLET PO SCH (09:16)
[2020-12-24] MEDS: MIDODRINE 5 MG TABLET PO SCH ×3 (09:16→20:58)
[2020-12-24] MEDS: ALLOPURINOL 300 MG TABLET PO SCH (09:16)
[2020-12-24] MEDS: FUROSEMIDE 20 MG TABLET PO SCH ×2 (09:16→20:58)
[2020-12-24] MEDS ORDERED: POTASSIUM PHOSPHATE 22 MEQ in SODIUM CHLORIDE 0.9% 500 ML IV ONE (12:00)
[2020-12-24] MEDS: ONDANSETRON 2MG/ML, 2ML IVPush PRN ×2 (12:01→20:57)
[2020-12-24 12:05] VITALS: BP 127/80
[2020-12-24] MEDS: LOPERAMIDE 2 MG CAPSULE PO PRN (12:10)
[2020-12-24 13:20] LABS: HCG UR SG 1.016 (1.003-1.030)
[2020-12-24 13:21] LABS: MICROSCOPIC INDICATED
[2020-12-24 13:24] LABS: CHLORIDE,URINE RANDOM 76 mmol/L; POTASSIUM,URINE RANDOM 66 mmol/L; SODIUM,URINE RANDOM 22 mmol/L
[2020-12-24] MEDS: DAPTOMYCIN 500 MG in SODIUM CHLORIDE 0.9% 100 ML IV SCH (15:30)
[2020-12-24] MEDS ORDERED: OMNIPAQUE 350 MG/ML, 100ML BOTTLE ONE (16:24)
[2020-12-24] MEDS: PROMETHAZINE 25 MG/ML, 1ML IM PRN (17:38)
[2020-12-24 18:40] VITALS: BP 126/66
[2020-12-24 21:09] VITALS: BP 140/83
[2020-12-25 00:27] VITALS: BP 132/73
[2020-12-25 05:29] LABS: ALBUMIN 2.6 g/dL (3.4-5.0); ANION GAP 10 mmol/L (5-15); CALCIUM 7.8 mg/dL (8.5-10.1); CHLORIDE 114 mmol/L (98-107)
[2020-12-25 05:31] LABS: MEAN CORPUSCULAR HEMOGLOBIN 27.6 pg (27.0-34.8); MEAN CORPUSCULAR HGB CONC 32.2 g/dL (32.4-35.8); MEAN PLATELET VOLUME 8.7 fL (7.4-10.4); PLATELET COUNT 314 x10^3/uL (130-400); RED BLOOD COUNT 3.11 x10^6/uL (3.82-5.3); RED CELL DISTRIBUTION WIDTH 19.7 % (9.6-15.2)
[2020-12-25 05:31] LABS: CREATININE 1.19 mg/dL (0.55-1.02)
[2020-12-25 06:43] LABS: BAND#(MANUAL) 0.88 x10^3/uL; BANDS%(MANUAL) 7 % (0-7); LYMPH#(MANUAL) 0.88 x10^3/uL (1-3.4); LYMPHS% (MANUAL) 7 % (22-44); METAMYELOCYTES# (MANUAL) 0.38 x10^3/uL (0-0); METAMYELOCYTES% (MANUAL) 3 % (0-1); MONOS% (MANUAL) 8 % (2-9); SEG#(MANUAL) 9.38 x10^3/uL (1.8-6.8); SEGS% (MANUAL) 75 % (42-75)
[2020-12-25 06:44] LABS: ANISOCYTOSIS 1+; POLYCHROMASIA 1+
[2020-12-25 06:45] LABS: <PLATELET ESTIMATE> ADEQUATE; <PLT MORPHOLOGY> NORMAL PLT MORPH; TEAR DROPS 1+
[2020-12-25 07:50] VITALS: BP 102/66
[2020-12-25] MEDS: ALLOPURINOL 300 MG TABLET PO SCH (09:18)
[2020-12-25] MEDS: MIDODRINE 5 MG TABLET PO SCH ×3 (09:18→22:59)
[2020-12-25] MEDS: FUROSEMIDE 20 MG TABLET PO SCH ×2 (09:19→22:59)
[2020-12-25] MEDS: SPIRONOLACTONE 25 MG TABLET PO SCH (09:19)
[2020-12-25] MEDS: PIPERACILLIN/TAZO 3.375 GM in DEXTROSE 5% 50 ML IVPB SCH ×2 (09:20→16:30)
[2020-12-25] MEDS: ENOXAPARIN 30 MG/0.3 ML SQ SCH ×2 (09:26→22:58)
[2020-12-25 09:30] LABS: HCT (SEDRATE) 27.2 % (34.6-47.8)
[2020-12-25 09:41] LABS: C-REACTIVE PROTEIN, QUANT 9.3 mg/dL (0.02-0.49)
[2020-12-25 12:23] VITALS: BP 127/82
[2020-12-25 13:35] LABS: MICROSCOPIC INDICATED
[2020-12-25 13:37] LABS: CHLORIDE,URINE RANDOM 30 mmol/L; POTASSIUM,URINE RANDOM 52 mmol/L; SODIUM,URINE RANDOM 8 mmol/L
[2020-12-25 19:01] VITALS: BP 129/78
[2020-12-25] MEDS: SODIUM BICARBONATE 650 MG TABLET PO SCH (22:59)
[2020-12-26] MEDS: PIPERACILLIN/TAZO 3.375 GM in DEXTROSE 5% 50 ML IVPB SCH ×3 (00:30→16:22)
[2020-12-26 01:31] VITALS: BP 126/77
[2020-12-26] MEDS ORDERED: LIDOCAINE-MPF 1%, 5ML ONE (04:13)
[2020-12-26 06:48] VITALS: BP 143/76
[2020-12-26] MEDS: ENOXAPARIN 30 MG/0.3 ML SQ SCH ×2 (09:59→20:59)
[2020-12-26] MEDS: SPIRONOLACTONE 25 MG TABLET PO SCH (09:59)
[2020-12-26] MEDS: MIDODRINE 5 MG TABLET PO SCH ×3 (10:00→20:56)
[2020-12-26] MEDS: SODIUM BICARBONATE 650 MG TABLET PO SCH ×2 (10:00→20:56)
[2020-12-26] MEDS: ALLOPURINOL 300 MG TABLET PO SCH (10:00)
[2020-12-26] MEDS: FUROSEMIDE 20 MG TABLET PO SCH ×2 (10:01→20:56)
[2020-12-26 10:30] LABS: MEAN CORPUSCULAR HEMOGLOBIN 28.1 pg (27.0-34.8); MEAN CORPUSCULAR HGB CONC 31.7 g/dL (32.4-35.8); MEAN PLATELET VOLUME 8.5 fL (7.4-10.4); PLATELET COUNT 367 x10^3/uL (130-400); RED CELL DISTRIBUTION WIDTH 19.8 % (9.6-15.2)
[2020-12-26 10:42] LABS: ANION GAP 13 mmol/L (5-15); CALCIUM 8.2 mg/dL (8.5-10.1); CHLORIDE 111 mmol/L (98-107); CREATININE 1.53 mg/dL (0.55-1.02)
[2020-12-26 10:43] LABS: ALBUMIN 2.5 g/dL (3.4-5.0)
[2020-12-26 10:49] LABS: ANISOCYTOSIS 1+; BAND#(MANUAL) 0.76 x10^3/uL; BANDS%(MANUAL) 6 % (0-7); EOS#(MANUAL) 0.13 x10^3/uL (0.0-0.4); EOS% (MANUAL) 1 % (1-7); LYMPH#(MANUAL) 1.39 x10^3/uL (1-3.4); LYMPHS% (MANUAL) 11 % (22-44); METAMYELOCYTES# (MANUAL) 0.25 x10^3/uL (0-0); METAMYELOCYTES% (MANUAL) 2 % (0-1); MONOS#(MANUAL) 0.76 x10^3/uL (0.3-2.7); MONOS% (MANUAL) 6 % (2-9); MYELOCYTES# (MANUAL) 0.13 x10^3/uL (0-0); MYELOCYTES% (MANUAL) 1 % (0-0); POLYCHROMASIA 1+; SEGS% (MANUAL) 73 % (42-75)
[2020-12-26 10:55] LABS: <PLATELET ESTIMATE> ADEQUATE; <PLT MORPHOLOGY> NORMAL PLT MORPH
[2020-12-26 13:28] VITALS: BP 123/78
[2020-12-26] MEDS: POTASSIUM CHLORIDE 20 MEQ TAB.ER.PRT PO SCH (16:22)
[2020-12-26] MEDS: ONDANSETRON 2MG/ML, 2ML IVPush PRN (16:34)
[2020-12-26 20:13] VITALS: BP 107/63
[2020-12-26 20:53] VITALS: BP 106/72
[2020-12-27] MEDS: PIPERACILLIN/TAZO 3.375 GM in DEXTROSE 5% 50 ML IVPB SCH ×3 (00:43→16:06)
[2020-12-27 01:54] VITALS: BP 100/57
[2020-12-27 05:36] LABS: MEAN CORPUSCULAR HEMOGLOBIN 28.9 pg (27.0-34.8); MEAN CORPUSCULAR HGB CONC 33.1 g/dL (32.4-35.8); PLATELET COUNT 353 x10^3/uL (130-400); RED BLOOD COUNT 2.91 x10^6/uL (3.82-5.3)
[2020-12-27 05:47] LABS: CHLORIDE 109 mmol/L (98-107)
[2020-12-27 05:51] LABS: ANION GAP 11 mmol/L (5-15); CALCIUM 8.2 mg/dL (8.5-10.1); CREATININE 1.35 mg/dL (0.55-1.02)
[2020-12-27 06:08] LABS: ANISOCYTOSIS 1+; BAND#(MANUAL) 0.76 x10^3/uL; BANDS%(MANUAL) 7 % (0-7); EOS#(MANUAL) 0.11 x10^3/uL (0.0-0.4); EOS% (MANUAL) 1 % (1-7); LYMPH#(MANUAL) 0.65 x10^3/uL (1-3.4); LYMPHS% (MANUAL) 6 % (22-44); METAMYELOCYTES# (MANUAL) 0.33 x10^3/uL (0-0); METAMYELOCYTES% (MANUAL) 3 % (0-1); MONOS#(MANUAL) 0.11 x10^3/uL (0.3-2.7); MONOS% (MANUAL) 1 % (2-9); MYELOCYTES# (MANUAL) 0.11 x10^3/uL (0-0); MYELOCYTES% (MANUAL) 1 % (0-0); POLYCHROMASIA 1+; SEG#(MANUAL) 8.83 x10^3/uL (1.8-6.8); SEGS% (MANUAL) 81 % (42-75)
[2020-12-27 06:10] LABS: <PLATELET ESTIMATE> ADEQUATE; <PLT MORPHOLOGY> NORMAL PLT MORPH
[2020-12-27] MEDS ORDERED: MAGNESIUM SULFATE PMX 2GM/50ML 50 ML IV ONE (07:30)
[2020-12-27] MEDS: ONDANSETRON 2MG/ML, 2ML IVPush PRN ×2 (07:47→20:44)
[2020-12-27] MEDS: ENOXAPARIN 30 MG/0.3 ML SQ SCH ×2 (07:48→20:44)
[2020-12-27 08:00] VITALS: BP 124/71
[2020-12-27] MEDS: MIDODRINE 5 MG TABLET PO SCH ×5 (09:00→20:44)
[2020-12-27] MEDS: FUROSEMIDE 20 MG TABLET PO SCH ×2 (09:05→20:45)
[2020-12-27] MEDS: SODIUM BICARBONATE 650 MG TABLET PO SCH ×3 (11:15→20:45)
[2020-12-27] MEDS: SPIRONOLACTONE 25 MG TABLET PO SCH ×2 (11:16→15:04)
[2020-12-27] MEDS: POTASSIUM CHLORIDE 20 MEQ TAB.ER.PRT PO SCH ×3 (11:16→16:00)
[2020-12-27] MEDS: ALLOPURINOL 300 MG TABLET PO SCH ×2 (11:16→15:04)
[2020-12-27] MEDS ORDERED: PROCHLORPERAZINE 5 MG/ML, 2ML IVPush ONE (12:00)
[2020-12-27 12:17] VITALS: BP 100/88
[2020-12-27] MEDS ORDERED: POTASSIUM CHLORIDE 40 MEQ in SODIUM CHLORIDE 0.9% 500 ML IV ONE (16:00)
[2020-12-27] MEDS ORDERED: MORPHINE SULFATE 4 MG/ML, 1ML IVPush PRN (16:00)
[2020-12-27 16:05] LABS: MICROSCOPIC INDICATED
[2020-12-27 16:07] LABS: CHLORIDE,URINE RANDOM 69 mmol/L; POTASSIUM,URINE RANDOM 42 mmol/L; SODIUM,URINE RANDOM 34 mmol/L
[2020-12-27 16:14] LABS: CREATININE,URINE RANDOM 72.2 mg/dL
[2020-12-27 19:34] VITALS: BP 109/61
[2020-12-27 20:40] VITALS: BP 101/63
[2020-12-27] MEDS: ACETAMINOPHEN 325 MG TABLET PO PRN (20:44)
[2020-12-28] MEDS: PIPERACILLIN/TAZO 3.375 GM in DEXTROSE 5% 50 ML IVPB SCH ×2 (00:36→08:01)
[2020-12-28 01:01] VITALS: BP 111/71
[2020-12-28] MEDS: ONDANSETRON 2MG/ML, 2ML IVPush PRN ×2 (05:15→18:19)
[2020-12-28 05:34] LABS: MEAN CORPUSCULAR HEMOGLOBIN 28.6 pg (27.0-34.8); MEAN CORPUSCULAR HGB CONC 32.7 g/dL (32.4-35.8); MEAN PLATELET VOLUME 8.3 fL (7.4-10.4); PLATELET COUNT 316 x10^3/uL (130-400); RED BLOOD COUNT 2.95 x10^6/uL (3.82-5.3); RED CELL DISTRIBUTION WIDTH 19.5 % (9.6-15.2)
[2020-12-28 05:44] LABS: CHLORIDE 109 mmol/L (98-107)
[2020-12-28 05:52] LABS: ALANINE AMINOTRANSFERASE 47 U/L (12-78); ALBUMIN 2.2 g/dL (3.4-5.0); ALKALINE PHOSPHATASE 68 U/L (45-117); ANION GAP 12 mmol/L (5-15); BILIRUBIN,TOTAL 7.7 mg/dL (0.2-1.0); CALCIUM 7.9 mg/dL (8.5-10.1); CREATININE 1.36 mg/dL (0.55-1.02); TOTAL PROTEIN 5.5 g/dL (6.4-8.2)
[2020-12-28 06:09] LABS: BAND#(MANUAL) 0.94 x10^3/uL; BANDS%(MANUAL) 8 % (0-7); LYMPH#(MANUAL) 0.94 x10^3/uL (1-3.4); LYMPHS% (MANUAL) 8 % (22-44); METAMYELOCYTES# (MANUAL) 0.47 x10^3/uL (0-0); METAMYELOCYTES% (MANUAL) 4 % (0-1); MONOS#(MANUAL) 0.47 x10^3/uL (0.3-2.7); MONOS% (MANUAL) 4 % (2-9); SEG#(MANUAL) 8.89 x10^3/uL (1.8-6.8); SEGS% (MANUAL) 76 % (42-75)
[2020-12-28 06:10] LABS: <PLATELET ESTIMATE> ADEQUATE; <PLT MORPHOLOGY> NORMAL PLT MORPH; ANISOCYTOSIS 1+; POLYCHROMASIA 1+
[2020-12-28 07:16] VITALS: BP 100/67
[2020-12-28 07:54] VITALS: BP 117/72
[2020-12-28] MEDS: MIDODRINE 5 MG TABLET PO SCH ×3 (08:00→21:02)
[2020-12-28] MEDS: FUROSEMIDE 20 MG TABLET PO SCH ×2 (08:00→21:03)
[2020-12-28] MEDS: ENOXAPARIN 30 MG/0.3 ML SQ SCH ×2 (10:56→23:04)
[2020-12-28] MEDS: SODIUM BICARBONATE 650 MG TABLET PO SCH (10:57)
[2020-12-28] MEDS: POTASSIUM CHLORIDE 20 MEQ TAB.ER.PRT PO SCH ×2 (10:57→17:24)
[2020-12-28] MEDS: PROMETHAZINE 25 MG/ML, 1ML IM PRN (11:04)
[2020-12-28 13:05] VITALS: BP 112/74
[2020-12-28] MEDS: ALLOPURINOL 300 MG TABLET PO SCH (13:23)
[2020-12-28] MEDS: ERGOCALCIFEROL 50,000 UNIT CAPSULE PO SCH (13:23)
[2020-12-28] MEDS: POTASSIUM ACID PHOSPHATE 500 MG TABLET.SOL PO SCH ×2 (13:23→21:00)
[2020-12-28] MEDS: SPIRONOLACTONE 25 MG TABLET PO SCH (13:23)
[2020-12-28 15:21] LABS: BILIRUBIN, DIRECT 6.3 mg/dL (0.1-0.2)
[2020-12-28 15:22] LABS: BILIRUBIN,INDIRECT 1.4 mg/dL (0.0-2.0); BILIRUBIN,TOTAL 7.7 mg/dL (0.2-1.0)
[2020-12-28 20:46] VITALS: BP 104/69
[2020-12-28 21:01] VITALS: BP 103/68
[2020-12-28] MEDS: ACETAMINOPHEN 325 MG TABLET PO PRN (21:03)
[2020-12-29 01:19] VITALS: BP 105/70
[2020-12-29] MEDS: ONDANSETRON 2MG/ML, 2ML IVPush PRN ×2 (05:07→23:55)
[2020-12-29 05:12] LABS: MEAN CORPUSCULAR HEMOGLOBIN 29.2 pg (27.0-34.8); MEAN PLATELET VOLUME 8.4 fL (7.4-10.4); PLATELET COUNT 305 x10^3/uL (130-400); RED BLOOD COUNT 2.89 x10^6/uL (3.82-5.3); RED CELL DISTRIBUTION WIDTH 20.1 % (9.6-15.2)
[2020-12-29 05:15] LABS: ALBUMIN 2.2 g/dL (3.4-5.0); ANION GAP 14 mmol/L (5-15); CALCIUM 7.7 mg/dL (8.5-10.1); CHLORIDE 107 mmol/L (98-107)
[2020-12-29] MEDS: ACETAMINOPHEN 325 MG TABLET PO PRN (05:15)
[2020-12-29 05:19] LABS: ALANINE AMINOTRANSFERASE 52 U/L (12-78); ALKALINE PHOSPHATASE 67 U/L (45-117); BILIRUBIN,TOTAL 7.1 mg/dL (0.2-1.0); CREATININE 1.48 mg/dL (0.55-1.02); TOTAL PROTEIN 5.7 g/dL (6.4-8.2)
[2020-12-29 05:47] LABS: BAND#(MANUAL) 0.73 x10^3/uL; BANDS%(MANUAL) 6 % (0-7); LYMPH#(MANUAL) 1.82 x10^3/uL (1-3.4); LYMPHS% (MANUAL) 15 % (22-44); METAMYELOCYTES# (MANUAL) 0.36 x10^3/uL (0-0); METAMYELOCYTES% (MANUAL) 3 % (0-1); MONOS#(MANUAL) 0.48 x10^3/uL (0.3-2.7); MONOS% (MANUAL) 4 % (2-9); SEG#(MANUAL) 8.71 x10^3/uL (1.8-6.8); SEGS% (MANUAL) 72 % (42-75)
[2020-12-29 05:48] LABS: ANISOCYTOSIS 1+; POLYCHROMASIA 1+; STOMATOCYTES 1+
[2020-12-29 05:49] LABS: <PLATELET ESTIMATE> ADEQUATE; <PLT MORPHOLOGY> NORMAL PLT MORPH
[2020-12-29 07:29] VITALS: BP 102/60
[2020-12-29 09:23] LABS: ALBUMIN 2.1 g/dL (3.4-5.0); BILIRUBIN, DIRECT 5.5 mg/dL (0.1-0.2)
[2020-12-29 09:25] LABS: BILIRUBIN,INDIRECT 1.6 mg/dL (0.0-2.0); BILIRUBIN,TOTAL 7.1 mg/dL (0.2-1.0); TOTAL PROTEIN 5.5 g/dL (6.4-8.2)
[2020-12-29] MEDS: POTASSIUM ACID PHOSPHATE 500 MG TABLET.SOL PO SCH ×2 (09:53→20:34)
[2020-12-29] MEDS: MIDODRINE 5 MG TABLET PO SCH ×3 (09:53→20:35)
[2020-12-29] MEDS: ENOXAPARIN 30 MG/0.3 ML SQ SCH ×2 (09:53→23:51)
[2020-12-29] MEDS: POTASSIUM CHLORIDE 20 MEQ TAB.ER.PRT PO SCH ×2 (09:54→16:39)
[2020-12-29] MEDS: SPIRONOLACTONE 25 MG TABLET PO SCH (09:54)
[2020-12-29] MEDS: ALLOPURINOL 300 MG TABLET PO SCH (09:54)
[2020-12-29] MEDS: FUROSEMIDE 20 MG TABLET PO SCH ×2 (09:54→20:35)
[2020-12-29] MEDS: POTASSIUM CHLORIDE 20 MEQ in SODIUM CHLORIDE 0.9% 1,000 ML IV SCH (12:40)
[2020-12-29 13:02] VITALS: BP 109/72
[2020-12-29 13:33] VITALS: BP 156/84
[2020-12-29 18:29] LABS: ANION GAP 11 mmol/L (5-15); CALCIUM 7.8 mg/dL (8.5-10.1); CHLORIDE 105 mmol/L (98-107); CREATININE 1.33 mg/dL (0.55-1.02)
[2020-12-29 20:14] VITALS: BP 100/59
[2020-12-30 02:10] VITALS: BP 103/61
[2020-12-30] MEDS: POTASSIUM CHLORIDE 20 MEQ in SODIUM CHLORIDE 0.9% 1,000 ML IV SCH ×2 (02:29→16:50)
[2020-12-30 04:55] LABS: MEAN CORPUSCULAR HGB CONC 32.7 g/dL (32.4-35.8); MEAN PLATELET VOLUME 8.2 fL (7.4-10.4); PLATELET COUNT 276 x10^3/uL (130-400); RED CELL DISTRIBUTION WIDTH 22.6 % (9.6-15.2)
[2020-12-30 05:07] LABS: ALBUMIN 2.1 g/dL (3.4-5.0); ANION GAP 9 mmol/L (5-15); CALCIUM 7.5 mg/dL (8.5-10.1); CHLORIDE 108 mmol/L (98-107)
[2020-12-30 05:11] LABS: ALANINE AMINOTRANSFERASE 49 U/L (12-78); ALKALINE PHOSPHATASE 70 U/L (45-117); BILIRUBIN,TOTAL 6.7 mg/dL (0.2-1.0); CREATININE 1.16 mg/dL (0.55-1.02); TOTAL PROTEIN 5.5 g/dL (6.4-8.2)
[2020-12-30 05:53] LABS: BAND#(MANUAL) 0.38 x10^3/uL; BANDS%(MANUAL) 4 % (0-7); EOS% (MANUAL) 1 % (1-7); METAMYELOCYTES% (MANUAL) 1 % (0-1); MONOS#(MANUAL) 0.48 x10^3/uL (0.3-2.7); MONOS% (MANUAL) 5 % (2-9); MYELOCYTES% (MANUAL) 1 % (0-0)
[2020-12-30 05:54] LABS: <PLATELET ESTIMATE> ADEQUATE; <PLT MORPHOLOGY> NORMAL PLT MORPH; ANISOCYTOSIS 1+; LYMPH#(MANUAL) 0.86 x10^3/uL (1-3.4); LYMPHS% (MANUAL) 9 % (22-44); POLYCHROMASIA 1+; SEG#(MANUAL) 7.51 x10^3/uL (1.8-6.8); SEGS% (MANUAL) 79 % (42-75); STOMATOCYTES 1+
[2020-12-30] MEDS ORDERED: POTASSIUM CHLORIDE 20 MEQ PACKET PO ONE (06:00)
[2020-12-30] MEDS: PANTOPRAZOLE 40 MG IV IVPush SCH (06:07)
[2020-12-30 06:45] VITALS: BP 92/58
[2020-12-30] MEDS ORDERED: PANTOPRAZOLE 40 MG IV IVPush SCH ×2 (09:00)
[2020-12-30] MEDS: POTASSIUM CHLORIDE 20 MEQ TAB.ER.PRT PO SCH ×2 (09:02→16:49)
[2020-12-30] MEDS: SPIRONOLACTONE 25 MG TABLET PO SCH (09:02)
[2020-12-30] MEDS: POTASSIUM ACID PHOSPHATE 500 MG TABLET.SOL PO SCH ×2 (09:02→21:14)
[2020-12-30] MEDS: ALLOPURINOL 300 MG TABLET PO SCH (09:02)
[2020-12-30] MEDS: MIDODRINE 5 MG TABLET PO SCH ×3 (09:02→21:14)
[2020-12-30] MEDS: FUROSEMIDE 20 MG TABLET PO SCH ×2 (09:02→21:14)
[2020-12-30] MEDS: ENOXAPARIN 30 MG/0.3 ML SQ SCH ×2 (09:56→23:04)
[2020-12-30 10:28] LABS: ALBUMIN 2.1 g/dL (3.4-5.0); BILIRUBIN, DIRECT 5.5 mg/dL (0.1-0.2)
[2020-12-30 10:29] LABS: BILIRUBIN,INDIRECT 1.4 mg/dL (0.0-2.0); BILIRUBIN,TOTAL 6.9 mg/dL (0.2-1.0); TOTAL PROTEIN 5.5 g/dL (6.4-8.2)
[2020-12-30 12:30] LABS: ANION GAP 9 mmol/L (5-15); CALCIUM 7.8 mg/dL (8.5-10.1); CHLORIDE 109 mmol/L (98-107)
[2020-12-30 13:18] VITALS: BP 104/60
[2020-12-30] MEDS: ONDANSETRON 2MG/ML, 2ML IVPush PRN (17:11)
[2020-12-30 19:45] VITALS: BP 99/64
[2020-12-30 23:56] VITALS: BP 106/73
[2020-12-31 04:36] LABS: MEAN CORPUSCULAR HGB CONC 31.9 g/dL (32.4-35.8); MEAN PLATELET VOLUME 8.2 fL (7.4-10.4); PLATELET COUNT 272 x10^3/uL (130-400); RED BLOOD COUNT 2.88 x10^6/uL (3.82-5.3); RED CELL DISTRIBUTION WIDTH 23.7 % (9.6-15.2)
[2020-12-31 04:41] LABS: ANION GAP 9 mmol/L (5-15); CALCIUM 7.7 mg/dL (8.5-10.1); CHLORIDE 110 mmol/L (98-107); CREATININE 1.14 mg/dL (0.55-1.02)
[2020-12-31 05:32] LABS: <PLATELET ESTIMATE> ADEQUATE; <PLT MORPHOLOGY> NORMAL PLT MORPH; ANISOCYTOSIS 1+; BAND#(MANUAL) 0.27 x10^3/uL; BANDS%(MANUAL) 3 % (0-7); BASOS#(MANUAL) 0.09 x10^3/uL (0-0.1); BASOS% (MANUAL) 1 % (0-1); EOS#(MANUAL) 0.45 x10^3/uL (0.0-0.4); EOS% (MANUAL) 5 % (1-7); LYMPH#(MANUAL) 1.69 x10^3/uL (1-3.4); LYMPHS% (MANUAL) 19 % (22-44); METAMYELOCYTES# (MANUAL) 0.09 x10^3/uL (0-0); METAMYELOCYTES% (MANUAL) 1 % (0-1); MONOS#(MANUAL) 0.09 x10^3/uL (0.3-2.7); MONOS% (MANUAL) 1 % (2-9); POLYCHROMASIA 1+; SEG#(MANUAL) 6.23 x10^3/uL (1.8-6.8); SEGS% (MANUAL) 70 % (42-75)
[2020-12-31 07:25] VITALS: BP 96/61
[2020-12-31] MEDS: POTASSIUM CHLORIDE 20 MEQ TAB.ER.PRT PO SCH ×2 (08:54→16:06)
[2020-12-31] MEDS: SPIRONOLACTONE 25 MG TABLET PO SCH (08:54)
[2020-12-31] MEDS: FUROSEMIDE 20 MG TABLET PO SCH (08:54)
[2020-12-31] MEDS: POTASSIUM ACID PHOSPHATE 500 MG TABLET.SOL PO SCH ×2 (08:54→21:43)
[2020-12-31] MEDS: MIDODRINE 5 MG TABLET PO SCH ×3 (08:54→21:43)
[2020-12-31] MEDS: POTASSIUM CHLORIDE 20 MEQ in SODIUM CHLORIDE 0.9% 1,000 ML IV SCH (08:55)
[2020-12-31] MEDS: PANTOPRAZOLE 40 MG IV IVPush SCH (08:55)
[2020-12-31] MEDS: ENOXAPARIN 30 MG/0.3 ML SQ SCH ×2 (11:04→23:03)
[2020-12-31] MEDS: ALLOPURINOL 300 MG TABLET PO SCH (11:04)
[2020-12-31 11:12] LABS: ALBUMIN 2.2 g/dL (3.4-5.0); BILIRUBIN, DIRECT 6.7 mg/dL (0.1-0.2)
[2020-12-31 11:14] LABS: BILIRUBIN,INDIRECT 1.6 mg/dL (0.0-2.0); BILIRUBIN,TOTAL 8.3 mg/dL (0.2-1.0); TOTAL PROTEIN 5.9 g/dL (6.4-8.2)
[2020-12-31 12:28] VITALS: BP 113/68
[2020-12-31 19:19] VITALS: BP 106/64
[2020-12-31 21:41] VITALS: BP 99/64
[2021-01-01 00:52] VITALS: BP 98/62
[2021-01-01] MEDS: PANTOPRAZOLE 20MG TABLET PO SCH (05:04)
[2021-01-01 05:09] LABS: MEAN CORPUSCULAR HEMOGLOBIN 29.6 pg (27.0-34.8); MEAN CORPUSCULAR HGB CONC 32.3 g/dL (32.4-35.8); MEAN PLATELET VOLUME 8.2 fL (7.4-10.4); PLATELET COUNT 238 x10^3/uL (130-400); RED BLOOD COUNT 2.75 x10^6/uL (3.82-5.3); RED CELL DISTRIBUTION WIDTH 23.5 % (9.6-15.2)
[2021-01-01 05:46] LABS: BAND#(MANUAL) 0.55 x10^3/uL; BANDS%(MANUAL) 6 % (0-7); EOS#(MANUAL) 0.27 x10^3/uL (0.0-0.4); EOS% (MANUAL) 3 % (1-7); LYMPH#(MANUAL) 1.18 x10^3/uL (1-3.4); LYMPHS% (MANUAL) 13 % (22-44); METAMYELOCYTES# (MANUAL) 0.18 x10^3/uL (0-0); METAMYELOCYTES% (MANUAL) 2 % (0-1); MONOS#(MANUAL) 0.46 x10^3/uL (0.3-2.7); MONOS% (MANUAL) 5 % (2-9); SEG#(MANUAL) 6.46 x10^3/uL (1.8-6.8); SEGS% (MANUAL) 71 % (42-75)
[2021-01-01 05:47] LABS: <PLATELET ESTIMATE> ADEQUATE; <PLT MORPHOLOGY> NORMAL PLT MORPH; ANISOCYTOSIS 2+; POLYCHROMASIA 1+; STOMATOCYTES 1+
[2021-01-01 05:55] LABS: ANION GAP 10 mmol/L (5-15); CHLORIDE 107 mmol/L (98-107); CREATININE 1.11 mg/dL (0.55-1.02)
[2021-01-01 07:35] VITALS: BP 111/63
[2021-01-01] MEDS: MIDODRINE 5 MG TABLET PO SCH ×3 (09:13→21:08)
[2021-01-01] MEDS: ENOXAPARIN 30 MG/0.3 ML SQ SCH ×2 (09:13→21:13)
[2021-01-01] MEDS: POTASSIUM CHLORIDE 20 MEQ TAB.ER.PRT PO SCH ×2 (09:13→16:21)
[2021-01-01] MEDS: FUROSEMIDE 20 MG TABLET PO SCH (09:14)
[2021-01-01] MEDS: POTASSIUM ACID PHOSPHATE 500 MG TABLET.SOL PO SCH ×2 (09:14→21:07)
[2021-01-01] MEDS: SPIRONOLACTONE 25 MG TABLET PO SCH (09:14)
[2021-01-01] MEDS: ALLOPURINOL 300 MG TABLET PO SCH (09:14)
[2021-01-01 09:59] LABS: BILIRUBIN,INDIRECT 1.6 mg/dL (0.0-2.0); BILIRUBIN,TOTAL 8.6 mg/dL (0.2-1.0); TOTAL PROTEIN 5.5 g/dL (6.4-8.2)
[2021-01-01] MEDS ORDERED: MAGNESIUM SULFATE PMX 4GM/100M 100 ML IVPB ONE (10:00)
[2021-01-01 13:18] VITALS: BP 110/73
[2021-01-01 19:01] LABS: ANA SCREEN NEGATIVE (Negative)
[2021-01-01 19:14] VITALS: BP 109/67
[2021-01-02 00:23] VITALS: BP 116/77
[2021-01-02] MEDS: PANTOPRAZOLE 20MG TABLET PO SCH (05:13)
[2021-01-02 05:44] LABS: MEAN CORPUSCULAR HEMOGLOBIN 29.2 pg (27.0-34.8); MEAN CORPUSCULAR HGB CONC 31.9 g/dL (32.4-35.8); MEAN PLATELET VOLUME 8.1 fL (7.4-10.4); PLATELET COUNT 248 x10^3/uL (130-400); RED BLOOD COUNT 2.84 x10^6/uL (3.82-5.3); RED CELL DISTRIBUTION WIDTH 23.6 % (9.6-15.2)
[2021-01-02 05:49] LABS: ALANINE AMINOTRANSFERASE 41 U/L (12-78); ANION GAP 10 mmol/L (5-15); CHLORIDE 104 mmol/L (98-107); CREATININE 1.11 mg/dL (0.55-1.02)
[2021-01-02 05:51] LABS: ALKALINE PHOSPHATASE 80 U/L (45-117); BILIRUBIN,TOTAL 9.4 mg/dL (0.2-1.0); TOTAL PROTEIN 5.5 g/dL (6.4-8.2)
[2021-01-02 06:17] LABS: EOS#(MANUAL) 0.27 x10^3/uL (0.0-0.4); EOS% (MANUAL) 3 % (1-7); LYMPH#(MANUAL) 1.07 x10^3/uL (1-3.4); LYMPHS% (MANUAL) 12 % (22-44); METAMYELOCYTES# (MANUAL) 0.18 x10^3/uL (0-0); METAMYELOCYTES% (MANUAL) 2 % (0-1)
[2021-01-02 06:19] LABS: ANISOCYTOSIS 2+; BAND#(MANUAL) 0.18 x10^3/uL; BANDS%(MANUAL) 2 % (0-7); MONOS#(MANUAL) 0.27 x10^3/uL (0.3-2.7); MONOS% (MANUAL) 3 % (2-9); POLYCHROMASIA 1+; SEG#(MANUAL) 6.94 x10^3/uL (1.8-6.8); SEGS% (MANUAL) 78 % (42-75)
[2021-01-02 06:20] LABS: STOMATOCYTES 1+
[2021-01-02 06:21] LABS: <PLATELET ESTIMATE> ADEQUATE; <PLT MORPHOLOGY> NORMAL PLT MORPH
[2021-01-02 07:07] VITALS: BP 94/60
[2021-01-02] MEDS ORDERED: METOCLOPRAMIDE 5 MG/ML, 2ML ONE (09:57)
[2021-01-02] MEDS: METOCLOPRAMIDE 5 MG/ML, 2ML IVPush PRN (10:01)
[2021-01-02] MEDS: ALLOPURINOL 300 MG TABLET PO SCH (10:04)
[2021-01-02] MEDS: POTASSIUM ACID PHOSPHATE 500 MG TABLET.SOL PO SCH ×2 (10:04→21:37)
[2021-01-02] MEDS: MIDODRINE 5 MG TABLET PO SCH ×3 (10:04→21:37)
[2021-01-02] MEDS: FUROSEMIDE 20 MG TABLET PO SCH (10:04)
[2021-01-02] MEDS: POTASSIUM CHLORIDE 20 MEQ TAB.ER.PRT PO SCH ×2 (10:05→16:30)
[2021-01-02] MEDS: ENOXAPARIN 30 MG/0.3 ML SQ SCH ×2 (10:05→21:36)
[2021-01-02] MEDS: METOPROLOL TARTRATE 25 MG TAB PO SCH (10:05)
[2021-01-02] MEDS: SPIRONOLACTONE 25 MG TABLET PO SCH (10:11)
[2021-01-02 12:50] VITALS: BP 99/62
[2021-01-02 18:41] VITALS: BP 98/62
[2021-01-03 00:01] VITALS: BP 112/77
[2021-01-03] MEDS: PANTOPRAZOLE 20MG TABLET PO SCH (04:58)
[2021-01-03 08:25] VITALS: BP 102/60
[2021-01-03] MEDS: METOCLOPRAMIDE 5 MG/ML, 2ML IVPush PRN (08:29)
[2021-01-03] MEDS: SPIRONOLACTONE 25 MG TABLET PO SCH (08:32)
[2021-01-03] MEDS: METOPROLOL TARTRATE 25 MG TAB PO SCH (08:32)
[2021-01-03] MEDS: MIDODRINE 5 MG TABLET PO SCH ×3 (08:32→21:12)
[2021-01-03] MEDS: POTASSIUM CHLORIDE 20 MEQ TAB.ER.PRT PO SCH ×2 (08:33→16:02)
[2021-01-03] MEDS: POTASSIUM ACID PHOSPHATE 500 MG TABLET.SOL PO SCH ×2 (08:33→21:12)
[2021-01-03] MEDS: ALLOPURINOL 300 MG TABLET PO SCH (08:33)
[2021-01-03] MEDS: FUROSEMIDE 20 MG TABLET PO SCH (08:33)
[2021-01-03] MEDS: ENOXAPARIN 30 MG/0.3 ML SQ SCH ×2 (09:43→22:06)
[2021-01-03 12:16] VITALS: BP 101/65
[2021-01-03 19:47] VITALS: BP 134/62
[2021-01-03 20:15] VITALS: BP 102/58
[2021-01-04 01:06] VITALS: BP 108/66
[2021-01-04] MEDS: PANTOPRAZOLE 20MG TABLET PO SCH (05:13)
[2021-01-04 05:38] LABS: CHLORIDE 101 mmol/L (98-107)
[2021-01-04 05:45] LABS: ALANINE AMINOTRANSFERASE 42 U/L (12-78); ALKALINE PHOSPHATASE 81 U/L (45-117); ANION GAP 12 mmol/L (5-15); BILIRUBIN,TOTAL 11.3 mg/dL (0.2-1.0); TOTAL PROTEIN 5.7 g/dL (6.4-8.2)
[2021-01-04 07:17] VITALS: BP 102/58
[2021-01-04] MEDS: METOPROLOL TARTRATE 25 MG TAB PO SCH (08:29)
[2021-01-04] MEDS: POTASSIUM ACID PHOSPHATE 500 MG TABLET.SOL PO SCH ×2 (08:29→21:50)
[2021-01-04] MEDS: ALLOPURINOL 300 MG TABLET PO SCH (08:29)
[2021-01-04] MEDS: MIDODRINE 5 MG TABLET PO SCH (08:30)
[2021-01-04] MEDS: POTASSIUM CHLORIDE 20 MEQ TAB.ER.PRT PO SCH ×2 (08:30→17:15)
[2021-01-04] MEDS: SPIRONOLACTONE 25 MG TABLET PO SCH (08:30)
[2021-01-04] MEDS: ENOXAPARIN 30 MG/0.3 ML SQ SCH ×2 (08:31→21:51)
[2021-01-04] MEDS: FUROSEMIDE 20 MG TABLET PO SCH (08:31)
[2021-01-04 13:25] VITALS: BP 114/62
[2021-01-04] MEDS: ERGOCALCIFEROL 50,000 UNIT CAPSULE PO SCH (14:43)
[2021-01-04 19:42] VITALS: BP 92/60
[2021-01-05 02:38] VITALS: BP 88/52
[2021-01-05 03:08] VITALS: BP 103/55
[2021-01-05] MEDS: PANTOPRAZOLE 20MG TABLET PO SCH (06:33)
[2021-01-05 06:51] VITALS: BP 98/56
[2021-01-05] MEDS: POTASSIUM ACID PHOSPHATE 500 MG TABLET.SOL PO SCH ×2 (09:46→21:18)
[2021-01-05] MEDS: METOPROLOL TARTRATE 25 MG TAB PO SCH (09:47)
[2021-01-05] MEDS: ALLOPURINOL 300 MG TABLET PO SCH (09:47)
[2021-01-05] MEDS: ENOXAPARIN 30 MG/0.3 ML SQ SCH ×2 (09:47→21:19)
[2021-01-05] MEDS: FUROSEMIDE 20 MG TABLET PO SCH (09:47)
[2021-01-05] MEDS: SPIRONOLACTONE 25 MG TABLET PO SCH (09:47)
[2021-01-05] MEDS: POTASSIUM CHLORIDE 20 MEQ TAB.ER.PRT PO SCH ×2 (09:47→17:38)
[2021-01-05 11:20] LABS: MEAN CORPUSCULAR HEMOGLOBIN 29.4 pg (27.0-34.8); MEAN CORPUSCULAR HGB CONC 31.6 g/dL (32.4-35.8); MEAN PLATELET VOLUME 8.1 fL (7.4-10.4); PLATELET COUNT 220 x10^3/uL (130-400); RED BLOOD COUNT 2.69 x10^6/uL (3.82-5.3)
[2021-01-05 11:28] LABS: ALBUMIN 1.9 g/dL (3.4-5.0); ANION GAP 11 mmol/L (5-15); CALCIUM 7.8 mg/dL (8.5-10.1); CHLORIDE 100 mmol/L (98-107)
[2021-01-05 11:33] LABS: ALANINE AMINOTRANSFERASE 44 U/L (12-78); ALKALINE PHOSPHATASE 79 U/L (45-117); BILIRUBIN,TOTAL 11.8 mg/dL (0.2-1.0); CREATININE 1.02 mg/dL (0.55-1.02); TOTAL PROTEIN 5.5 g/dL (6.4-8.2)
[2021-01-05 11:40] LABS: BAND#(MANUAL) 0.46 x10^3/uL; BANDS%(MANUAL) 7 % (0-7); EOS#(MANUAL) 0.13 x10^3/uL (0.0-0.4); EOS% (MANUAL) 2 % (1-7); LYMPH#(MANUAL) 0.86 x10^3/uL (1-3.4); LYMPHS% (MANUAL) 13 % (22-44); MONOS#(MANUAL) 0.53 x10^3/uL (0.3-2.7); MONOS% (MANUAL) 8 % (2-9); MYELOCYTES# (MANUAL) 0.07 x10^3/uL (0-0); MYELOCYTES% (MANUAL) 1 % (0-0); SEG#(MANUAL) 4.55 x10^3/uL (1.8-6.8); SEGS% (MANUAL) 69 % (42-75)
[2021-01-05 11:44] LABS: <PLATELET ESTIMATE> ADEQUATE; <PLT MORPHOLOGY> NORMAL PLT MORPH; ANISOCYTOSIS 1+; OVALOCYTES 1+; POLYCHROMASIA 1+; STOMATOCYTES 1+
[2021-01-05 14:00] VITALS: BP 91/60
[2021-01-05 19:17] VITALS: BP 94/52
[2021-01-06 01:00] VITALS: BP 93/50
[2021-01-06] MEDS: PANTOPRAZOLE 20MG TABLET PO SCH (05:50)
[2021-01-06] MEDS: ALLOPURINOL 300 MG TABLET PO SCH (08:07)
[2021-01-06] MEDS: METOPROLOL TARTRATE 25 MG TAB PO SCH (08:08)
[2021-01-06] MEDS: POTASSIUM ACID PHOSPHATE 500 MG TABLET.SOL PO SCH ×2 (08:08→22:13)
[2021-01-06] MEDS: FUROSEMIDE 20 MG TABLET PO SCH (08:08)
[2021-01-06] MEDS: POTASSIUM CHLORIDE 20 MEQ TAB.ER.PRT PO SCH ×2 (08:08→18:25)
[2021-01-06] MEDS: SPIRONOLACTONE 25 MG TABLET PO SCH (08:08)
[2021-01-06 08:55] VITALS: BP_SYST 2
[2021-01-06] MEDS: ENOXAPARIN 30 MG/0.3 ML SQ SCH ×2 (10:22→22:13)
[2021-01-06 13:13] VITALS: BP 91/61
[2021-01-06 19:44] VITALS: BP 94/56
[2021-01-07 03:34] VITALS: BP 94/68
[2021-01-07 04:12] LABS: MEAN CORPUSCULAR HEMOGLOBIN 30.1 pg (27.0-34.8); MEAN PLATELET VOLUME 8.2 fL (7.4-10.4); PLATELET COUNT 228 x10^3/uL (130-400); RED BLOOD COUNT 2.65 x10^6/uL (3.82-5.3); RED CELL DISTRIBUTION WIDTH 23.4 % (9.6-15.2)
[2021-01-07 04:19] LABS: ALANINE AMINOTRANSFERASE 47 U/L (12-78); ANION GAP 10 mmol/L (5-15); CALCIUM 7.8 mg/dL (8.5-10.1); CHLORIDE 99 mmol/L (98-107); CREATININE 1.12 mg/dL (0.55-1.02)
[2021-01-07 04:21] LABS: ALKALINE PHOSPHATASE 84 U/L (45-117); BILIRUBIN,TOTAL 13.6 mg/dL (0.2-1.0); TOTAL PROTEIN 5.6 g/dL (6.4-8.2)
[2021-01-07 05:37] LABS: BAND#(MANUAL) 0.49 x10^3/uL; BANDS%(MANUAL) 7 % (0-7); EOS#(MANUAL) 0.07 x10^3/uL (0.0-0.4); EOS% (MANUAL) 1 % (1-7); LYMPH#(MANUAL) 0.98 x10^3/uL (1-3.4); LYMPHS% (MANUAL) 14 % (22-44); METAMYELOCYTES# (MANUAL) 0.07 x10^3/uL (0-0); METAMYELOCYTES% (MANUAL) 1 % (0-1); MONOS#(MANUAL) 0.14 x10^3/uL (0.3-2.7); MONOS% (MANUAL) 2 % (2-9); MYELOCYTES# (MANUAL) 0.07 x10^3/uL (0-0); MYELOCYTES% (MANUAL) 1 % (0-0); SEG#(MANUAL) 5.18 x10^3/uL (1.8-6.8); SEGS% (MANUAL) 74 % (42-75)
[2021-01-07 05:38] LABS: ANISOCYTOSIS 1+; POLYCHROMASIA 1+
[2021-01-07 05:39] LABS: <PLATELET ESTIMATE> ADEQUATE; <PLT MORPHOLOGY> NORMAL PLT MORPH; STOMATOCYTES 1+
[2021-01-07] MEDS: PANTOPRAZOLE 20MG TABLET PO SCH (05:40)
[2021-01-07 08:09] VITALS: BP 107/69
[2021-01-07] MEDS: METOPROLOL TARTRATE 25 MG TAB PO SCH (08:38)
[2021-01-07] MEDS: POTASSIUM ACID PHOSPHATE 500 MG TABLET.SOL PO SCH ×2 (08:38→21:45)
[2021-01-07] MEDS: ALLOPURINOL 300 MG TABLET PO SCH (08:39)
[2021-01-07] MEDS: FUROSEMIDE 20 MG TABLET PO SCH (08:39)
[2021-01-07] MEDS: SPIRONOLACTONE 25 MG TABLET PO SCH (08:39)
[2021-01-07] MEDS: POTASSIUM CHLORIDE 20 MEQ TAB.ER.PRT PO SCH ×2 (08:39→16:20)
[2021-01-07] MEDS: ACETAMINOPHEN 325 MG TABLET PO PRN (10:53)
[2021-01-07] MEDS: ENOXAPARIN 30 MG/0.3 ML SQ SCH ×2 (10:53→21:44)
[2021-01-07 14:00] VITALS: BP 94/59
[2021-01-07 19:54] VITALS: BP 102/68
[2021-01-08 00:24] VITALS: BP 109/67
[2021-01-08] MEDS: PANTOPRAZOLE 20MG TABLET PO SCH (06:02)
[2021-01-08 06:48] VITALS: BP 101/57
[2021-01-08] MEDS: SPIRONOLACTONE 25 MG TABLET PO SCH (08:54)
[2021-01-08] MEDS: POTASSIUM CHLORIDE 20 MEQ TAB.ER.PRT PO SCH (08:54)
[2021-01-08] MEDS: ALLOPURINOL 300 MG TABLET PO SCH (08:54)
[2021-01-08] MEDS: METOPROLOL TARTRATE 25 MG TAB PO SCH (08:54)
[2021-01-08] MEDS: POTASSIUM ACID PHOSPHATE 500 MG TABLET.SOL PO SCH (08:54)
[2021-01-08] MEDS: FUROSEMIDE 20 MG TABLET PO SCH (08:55)
[2021-01-08] MEDS: ENOXAPARIN 30 MG/0.3 ML SQ SCH (08:57)
[2021-01-08] MEDS ORDERED: FURO20TA3 PO (11:08)
[2021-01-08] MEDS ORDERED: POTA20TA6 PO (11:08)
[2021-01-08] MEDS ORDERED: ERGO500017 PO (11:08)
[2021-01-08] MEDS ORDERED: METO25TA35 PO (11:08)
[2021-01-08] MEDS ORDERED: SPIR25TA PO (11:08)
[2021-01-08] MEDS ORDERED: PANT20TA4 PO (11:08)
[2021-01-08] MEDS ORDERED: ALLO300T PO (11:08)
[2021-01-08] MEDS ORDERED: PHOS250T3 PO (11:08)
== END 2021-01-08 14:40 | disposition home or self-care (01) | DRG 872 ==
LOC: ED 16:20 → 3N 16:21 → SUATTDRO 16:28 → 4WST 18:51 → 3N 12-13 12:30 → 4EST 12-16 14:38 → 4WST 12-23 05:53
PROVIDERS: ADMIT Hospitalist; ATTEND Hospitalist
PROC: 02HV33Z Insertion of Infusion Device into Superior Vena Cava, Percutaneous Approach (ICD-10-PCS; principal; 2020-12-11)
DX: A41.9 Sepsis, unspecified organism (principal); B17.9 Acute viral hepatitis, unspecified; E87.0 Hyperosmolality and hypernatremia; E87.2 Acidosis; I82.619 Acute embolism and thrombosis of superficial veins of unspecified upper extremity; K80.10 Calculus of gallbladder with chronic cholecystitis without obstruction; L03.116 Cellulitis of left lower limb; L03.115 Cellulitis of right lower limb; N04.9 Nephrotic syndrome with unspecified morphologic changes; N17.9 Acute kidney failure, unspecified; B19.20 Unspecified viral hepatitis C without hepatic coma; D50.9 Iron deficiency anemia, unspecified; E16.2 Hypoglycemia, unspecified; E66.01 Morbid (severe) obesity due to excess calories; E83.39 Other disorders of phosphorus metabolism; E83.42 Hypomagnesemia; E83.51 Hypocalcemia; E87.6 Hypokalemia; E79.0 Hyperuricemia without signs of inflammatory arthritis and tophaceous disease; E88.09 Other disorders of plasma-protein metabolism, not elsewhere classified; I10 Essential (primary) hypertension; I27.20 Pulmonary hypertension, unspecified; I87.8 Other specified disorders of veins; K21.9 Gastro-esophageal reflux disease without esophagitis; K52.9 Noninfective gastroenteritis and colitis, unspecified; K75.81 Nonalcoholic steatohepatitis (NASH); K76.89 Other specified diseases of liver; M19.90 Unspecified osteoarthritis, unspecified site; N26.9 Renal sclerosis, unspecified; R65.20 Severe sepsis without septic shock; Z87.441 Personal history of nephrotic syndrome; Z95.828 Presence of other vascular implants and grafts; Z79.899 Other long term (current) drug therapy; Z79.891 Long term (current) use of opiate analgesic; Z79.01 Long term (current) use of anticoagulants
CPT/HCPCS: 36415; 36573; 50200; 71045; 71275; 74018; 74177; 76700; 76770; 77012; 78227; 80048; 80053; 80069; 80074; 80076; 81001; 81003; 81025; 82040; 82088; 82247; 82248; 82306; 82310; 82330; 82436; 82533; 82550; 82570; 82595; 82728; 82977; 83516; 83520; 83540; 83550; 83605; 83690; 83735; 83880; 83883; 83970; 84100; 84132; 84133; 84145; 84155; 84156; 84165; 84166; 84244; 84300; 84443; 84484; 84550; 85025; 85045; 85379; 85610; 85651; 86038; 86060; 86063; 86140; 86160; 86162; 86225; 86256; 86430; 86480; 86644; 86645; 87040; 87046; 87070; 87081; 87086; 87106; 87205; 87324; 87497; 88300; 89055; 93005; 93306; 93970; 99156; 99157; G0378; J0295; J0696; J0878; J1650; J1756; J1940; J2250; J2405; J2543; J2550; J3010; J3370; J3480; J7070; P9047; Q9967; U0005; A9537; C1751; C9113; J0780; J2310; J2765; J3475; J7030; J7040; J7050; U0003

== ENCOUNTER 2021-01-15 09:37 | Inpatient (IN) | payer OTHER ==
[~2021-01-15] VITALS: Ht 157.5 cm; Wt 127.3 kg
[~2021-01-15 09:37] MED LIST: ACET325C6 PO; ALLO300T PO; AMOX1TAB64 PO; ERGO500017 PO; FURO20TA3 PO; LOSA50TA14 PO; METO-282 PO; METO25TA35 PO; NYST1POW5 TP; PANT20TA4 PO; PHOS250T3 PO; POTA20TA6 PO; SPIR25TA PO
--- NOTE | 2021-01-15 09:55 | NUR ---
BIB [facility] FROM HOME FOR INTERMITTENT CP, SOB AND DENNIS. PT DENIES CP AT THIS TIME. EMS ADMINISTERED 300ML LR VIA IV, AND 324 ASPIRIN. PT RECENTLY DC'ED FROM HOSPITAL AND WAS HERE FOR EDEMA, NEPHROTIC SYNDROME, CELLULITIS, SEPSIS, ACUTE KIDNEY INJURY, PROTEINURIA. PT REPORTS VERY LITTLE URINARY OUTPUT. PT SATURATING 97-98% ON RA, RESPIRATIONS 20-35. PT APPEARS TIRED. JAUNDICE SKIN AND SCLERA.
--- NOTE | 2021-01-15 09:55 | NUR ---
MAIL HANDLER EQUIPMENT OPERATOR [id number] USED FOR ASSESSMENT AND HX.
--- NOTE | 2021-01-15 10:12 | NUR ---
EDMD AND ARMORER TECHNICIAN AWARE OF PT'S VITALS. PLAN IS TO ADMINISTER ADDITIONAL LR. AWAITING ORDERS.
--- NOTE | 2021-01-15 10:29 | NUR ---
PER MD "LET ME KNOW IF SHE'S STILL HYPOTENSIVE IN 15 MINUTES AND WE WILL PUT A CENTRAL LINE IN HER."
[2021-01-15] MEDS ORDERED: SODIUM CHLORIDE FLUSH 10ML SYR IVF ONE (10:30)
[2021-01-15] MEDS ORDERED: LACTATED RINGERS 1,000 ML IV ONE ×2 (10:30→12:00)
--- NOTE | 2021-01-15 10:52 | NUR ---
PT MOVED TO LARGER ROOM. CENTRAL LINE EQUIPMENT BROUGHT IN. LAB AT BEDSIDE FOR DRAW. CONSENTS AND CHECK LISTS FOR CENTRAL LINE AT BEDSIDE.
--- NOTE | 2021-01-15 11:09 | NUR ---
WOOL SHEARER [id number] USED TO EXPLAIN CENTRAL LINE. PT VERBALIZES UNDERSTANDING, REPORTS PREVIOUS USE OF CENTRAL LINE. ALSO DISCUSSED POSSIBILITY OF USING AGUILA IF ERMD WANTS TO MEASURE I&O'S. PT VERBALIZES UNDERSTANDING.
[2021-01-15 11:21] LABS: BASOPHILS % (AUTO) 1 % (0-1); EOSINOPHILS % (AUTO) 0 % (1-7); LYMPHOCYTES % (AUTO) 8 % (22-44); MEAN CORPUSCULAR HEMOGLOBIN 31.5 pg (27.0-34.8); MEAN CORPUSCULAR HGB CONC 32.8 g/dL (32.4-35.8); MEAN PLATELET VOLUME 8.2 fL (7.4-10.4); MONOCYTES % (AUTO) 5 % (2-9); NEUTROPHILS % (AUTO) 86 % (42-75); PLATELET COUNT 289 x10^3/uL (130-400); RED BLOOD COUNT 2.68 x10^6/uL (3.82-5.3)
[2021-01-15 11:27] LABS: ALBUMIN 1.9 g/dL (3.4-5.0); ANION GAP 12 mmol/L (5-15); CALCIUM 7.9 mg/dL (8.5-10.1); CHLORIDE 96 mmol/L (98-107); INTERNATIONAL NORMALIZED RATIO 1.88 (0.93-1.1); PROTHROMBIN TIME 19.5 Seconds (9.6-11.5)
[2021-01-15 11:31] LABS: ALANINE AMINOTRANSFERASE 36 U/L (12-78); ALKALINE PHOSPHATASE 77 U/L (45-117); TOTAL PROTEIN 5.4 g/dL (6.4-8.2); TROPONIN I < 0.015 ng/mL (0.000-0.045)
--- NOTE | 2021-01-15 11:32 | NUR ---
YELLOW SLIP PREPARED FOR LEVOPHED REQUEST AND SENT TO PHARMACY
[2021-01-15 11:42] LABS: BILIRUBIN,TOTAL 20.1 mg/dL (0.2-1.0)
[2021-01-15] MEDS ORDERED: PIPERACILLIN/TAZO 3.375 GM in DEXTROSE 5% 50 ML IVPB ONE (12:00)
--- NOTE | 2021-01-15 12:10 | NUR ---
CENTRAL LINE PLACED, AGUILA PLACED, NANO AREA CARE AND CHANGE OF SHEETS COMPLETED. ERMD AWARE OF PT'S CURRENT VS.
[2021-01-15] MEDS ORDERED: NOREPINEPHRINE 8 MG in SODIUM CHLORIDE 0.9% 242 ML IV PRN ×2 (12:30→14:00)
--- NOTE | 2021-01-15 12:45 | NUR ---
REPEAT DISCUSSION REGARDING SEPSIS PROTOCOL. EDMD CAUTIOUS REGARDING FLUID RESCUSITATION DUE TO PT'S EXTENSIVE EDEMA. Addendum: 01/15/21 at 1300 by [email or web address] AND THIRD SPACING.
--- NOTE | 2021-01-15 13:00 | NUR ---
DISCUSSION WITH EDMD REGARDING MEDICATION FOR PT'S TEMPERATURE. CURRENTLY NOT FURTHER ORDERS DUE TO PT'S LIVER FUNCTION.
--- NOTE | 2021-01-15 13:28 | NUR ---
ivf infusing per emar
[2021-01-15 16:19] LABS: MICROSCOPIC INDICATED
[2021-01-15] MEDS: POTASSIUM ACID PHOSPHATE 500 MG TABLET.SOL PO SCH ×2 (16:34→21:37)
[2021-01-15] MEDS ORDERED: VANCOMYCIN PER PHARMACY MC PRN (17:30)
[2021-01-15] MEDS ORDERED: ONDANSETRON 2MG/ML, 2ML IVPush PRN (17:30)
[2021-01-15] MEDS ORDERED: VANCOMYCIN 2,500 MG in SODIUM CHLORIDE 0.9% 500 ML IV ONE (18:00)
[2021-01-15] MEDS ORDERED: PHARMACOKINETIC CONSULTATION MC ONE (18:00)
[2021-01-15] MEDS ORDERED: PHARMACOKINETIC MONITORING MC PRN (18:00)
[2021-01-15] MEDS: HEPARIN 5,000 UNITS/ML, 1ML SQ SCH (19:34)
[2021-01-15] MEDS: morphine SULFATE 10 MG/ML, 1ML IVPush PRN (19:35)
[2021-01-15] MEDS: PIPERACILLIN/TAZO 3.375 GM in DEXTROSE 5% 50 ML IVPB SCH (19:36)
[2021-01-15] MEDS ORDERED: ACETAMINOPHEN 325 MG TABLET PO PRN (20:45)
[2021-01-16] MEDS: HEPARIN 5,000 UNITS/ML, 1ML SQ SCH ×3 (04:26→20:00)
[2021-01-16] MEDS: POTASSIUM ACID PHOSPHATE 500 MG TABLET.SOL PO SCH ×4 (04:26→22:37)
[2021-01-16] MEDS: PIPERACILLIN/TAZO 3.375 GM in DEXTROSE 5% 50 ML IVPB SCH ×3 (04:26→20:05)
[2021-01-16 05:31] LABS: MEAN CORPUSCULAR HEMOGLOBIN 31.7 pg (27.0-34.8); MEAN CORPUSCULAR HGB CONC 32.6 g/dL (32.4-35.8); MEAN PLATELET VOLUME 8.1 fL (7.4-10.4); PLATELET COUNT 289 x10^3/uL (130-400); RED BLOOD COUNT 2.78 x10^6/uL (3.82-5.3); RED CELL DISTRIBUTION WIDTH 21.8 % (9.6-15.2)
[2021-01-16 05:33] LABS: ALANINE AMINOTRANSFERASE 42 U/L (12-78); ALBUMIN 1.7 g/dL (3.4-5.0); ANION GAP 9 mmol/L (5-15); CALCIUM 7.7 mg/dL (8.5-10.1); CHLORIDE 100 mmol/L (98-107)
[2021-01-16 05:35] LABS: ALKALINE PHOSPHATASE 81 U/L (45-117)
[2021-01-16 05:36] LABS: INTERNATIONAL NORMALIZED RATIO 1.98 (0.93-1.1); PROTHROMBIN TIME 20.5 Seconds (9.6-11.5)
[2021-01-16 05:38] LABS: CREATININE 1.33 mg/dL (0.55-1.02); TOTAL PROTEIN 5.2 g/dL (6.4-8.2)
[2021-01-16 05:39] LABS: BILIRUBIN,TOTAL 19.9 mg/dL (0.2-1.0)
[2021-01-16 06:23] LABS: BAND#(MANUAL) 0.29 x10^3/uL; BANDS%(MANUAL) 3 % (0-7); LYMPH#(MANUAL) 0.78 x10^3/uL (1-3.4); LYMPHS% (MANUAL) 8 % (22-44); METAMYELOCYTES# (MANUAL) 0.19 x10^3/uL (0-0); METAMYELOCYTES% (MANUAL) 2 % (0-1); MONOS% (MANUAL) 1 % (2-9); SEG#(MANUAL) 8.34 x10^3/uL (1.8-6.8); SEGS% (MANUAL) 86 % (42-75)
[2021-01-16 06:24] LABS: <PLATELET ESTIMATE> ADEQUATE; <PLT MORPHOLOGY> NORMAL PLT MORPH; ANISOCYTOSIS 1+; POLYCHROMASIA 1+
[2021-01-16] MEDS ORDERED: ACETAMINOPHEN 325 MG TABLET PO PRN (08:25)
[2021-01-16] MEDS: NOREPINEPHRINE 8 MG in SODIUM CHLORIDE 0.9% 242 ML IV PRN (08:48)
[2021-01-16] MEDS ORDERED: PHYTONADIONE 10 MG in SODIUM CHLORIDE 0.9% 50 ML IV ONE (10:30)
[2021-01-16] MEDS ORDERED: VANCOMYCIN 2,000 MG in SODIUM CHLORIDE 0.9% 500 ML IV SCH (18:00)
[2021-01-16 19:03] LABS: AMPHETAMINE SCREEN, URINE Negative (Negative); BARBITURATE SCREEN, URINE Negative (Negative); BENZODIAZEPINE SCREEN, URINE Negative (Negative); CANNABINOID SCREEN, URINE Negative (Negative); COCAINE SCREEN, URINE Negative (Negative); METHADONE SCREEN, URINE Negative (Negative); OPIATE SCREEN, URINE Positive (Negative)
[2021-01-16] MEDS ORDERED: MORPHINE SULFATE 4 MG/ML, 1ML ONE (19:59)
[2021-01-16] MEDS: ACETAMINOPHEN 500 MG TABLET PO PRN (20:05)
[2021-01-16] MEDS: morphine SULFATE 10 MG/ML, 1ML IVPush PRN (20:05)
[2021-01-16] MEDS ORDERED: MELATONIN 5 MG TABLET ONE (23:27)
[2021-01-16] MEDS ORDERED: MELATONIN 5 MG TABLET PO ONE (23:30)
[2021-01-17] MEDS: HEPARIN 5,000 UNITS/ML, 1ML SQ SCH (04:00)
[2021-01-17] MEDS: PIPERACILLIN/TAZO 3.375 GM in DEXTROSE 5% 50 ML IVPB SCH ×3 (04:17→20:20)
[2021-01-17] MEDS: POTASSIUM ACID PHOSPHATE 500 MG TABLET.SOL PO SCH ×4 (04:17→22:30)
[2021-01-17 04:49] LABS: BASOPHILS % (AUTO) 1 % (0-1); EOSINOPHILS % (AUTO) 2 % (1-7); LYMPHOCYTES % (AUTO) 9 % (22-44); MEAN CORPUSCULAR HEMOGLOBIN 31.8 pg (27.0-34.8); MEAN CORPUSCULAR HGB CONC 33.1 g/dL (32.4-35.8); MEAN PLATELET VOLUME 8.2 fL (7.4-10.4); MONOCYTES % (AUTO) 6 % (2-9); NEUTROPHILS % (AUTO) 83 % (42-75); PLATELET COUNT 245 x10^3/uL (130-400); RED BLOOD COUNT 2.64 x10^6/uL (3.82-5.3); RED CELL DISTRIBUTION WIDTH 21.6 % (9.6-15.2)
[2021-01-17 05:00] LABS: ALANINE AMINOTRANSFERASE 49 U/L (12-78); ALBUMIN 1.6 g/dL (3.4-5.0); ANION GAP 11 mmol/L (5-15); CALCIUM 7.5 mg/dL (8.5-10.1); CHLORIDE 99 mmol/L (98-107); CREATININE 1.24 mg/dL (0.55-1.02)
[2021-01-17 05:02] LABS: ALKALINE PHOSPHATASE 81 U/L (45-117)
[2021-01-17 05:06] LABS: BILIRUBIN,TOTAL 18.5 mg/dL (0.2-1.0)
[2021-01-17 05:36] LABS: INTERNATIONAL NORMALIZED RATIO 1.43 (0.93-1.1)
[2021-01-17] MEDS: POTASSIUM CHLORIDE 20 MEQ TAB.ER.PRT PO SCH ×2 (09:47→17:17)
[2021-01-17] MEDS: NOREPINEPHRINE 8 MG in SODIUM CHLORIDE 0.9% 242 ML IV PRN (11:28)
[2021-01-17] MEDS: DIPHENHYDRAMINE 25 MG CAPSULE PO PRN (13:58)
[2021-01-17] MEDS: morphine SULFATE 10 MG/ML, 1ML IVPush PRN ×2 (13:58→18:14)
[2021-01-17] MEDS: ACETAMINOPHEN 500 MG TABLET PO PRN (17:17)
[2021-01-18] MEDS ORDERED: GLUCAGON 1 MG IM PRN ×2 (01:30→02:00)
[2021-01-18] MEDS ORDERED: DEXTROSE 4 GM TAB.CHEW PO PRN ×2 (01:30→02:00)
[2021-01-18] MEDS ORDERED: DEXTROSE 50%, 50ML SYRINGE IVPush PRN ×2 (01:30→02:00)
[2021-01-18] MEDS: NOREPINEPHRINE 8 MG in SODIUM CHLORIDE 0.9% 242 ML IV PRN (02:09)
[2021-01-18] MEDS: PIPERACILLIN/TAZO 3.375 GM in DEXTROSE 5% 50 ML IVPB SCH ×3 (04:08→21:37)
[2021-01-18 04:22] LABS: MEAN CORPUSCULAR HEMOGLOBIN 32.2 pg (27.0-34.8); MEAN CORPUSCULAR HGB CONC 33.2 g/dL (32.4-35.8); MEAN PLATELET VOLUME 8.1 fL (7.4-10.4); PLATELET COUNT 262 x10^3/uL (130-400); RED BLOOD COUNT 2.58 x10^6/uL (3.82-5.3); RED CELL DISTRIBUTION WIDTH 22.2 % (9.6-15.2)
[2021-01-18] MEDS: POTASSIUM ACID PHOSPHATE 500 MG TABLET.SOL PO SCH ×4 (04:23→22:30)
[2021-01-18 04:25] LABS: INTERNATIONAL NORMALIZED RATIO 1.37 (0.93-1.1); PROTHROMBIN TIME 14.4 Seconds (9.6-11.5)
[2021-01-18 04:27] LABS: ALANINE AMINOTRANSFERASE 63 U/L (12-78); ALBUMIN 1.7 g/dL (3.4-5.0); ANION GAP 11 mmol/L (5-15); CALCIUM 7.5 mg/dL (8.5-10.1); CHLORIDE 102 mmol/L (98-107)
[2021-01-18 04:28] LABS: CREATININE 1.43 mg/dL (0.55-1.02)
[2021-01-18 04:30] LABS: ALKALINE PHOSPHATASE 90 U/L (45-117); VANCOMYCIN,RANDOM 23.8 mcg/mL
[2021-01-18 04:31] LABS: BILIRUBIN,TOTAL 20.7 mg/dL (0.2-1.0); TOTAL PROTEIN 5.1 g/dL (6.4-8.2)
[2021-01-18 06:05] LABS: BAND#(MANUAL) 0.08 x10^3/uL; BANDS%(MANUAL) 1 % (0-7); EOS#(MANUAL) 0.08 x10^3/uL (0.0-0.4); EOS% (MANUAL) 1 % (1-7); LYMPH#(MANUAL) 0.61 x10^3/uL (1-3.4); LYMPHS% (MANUAL) 8 % (22-44); METAMYELOCYTES# (MANUAL) 0.08 x10^3/uL (0-0); METAMYELOCYTES% (MANUAL) 1 % (0-1); MONOS#(MANUAL) 0.61 x10^3/uL (0.3-2.7); MONOS% (MANUAL) 8 % (2-9); MYELOCYTES# (MANUAL) 0.23 x10^3/uL (0-0); MYELOCYTES% (MANUAL) 3 % (0-0); SEG#(MANUAL) 5.93 x10^3/uL (1.8-6.8); SEGS% (MANUAL) 78 % (42-75)
[2021-01-18 06:06] LABS: <PLATELET ESTIMATE> ADEQUATE; <PLT MORPHOLOGY> NORMAL PLT MORPH; ANISOCYTOSIS 1+; POLYCHROMASIA 1+
[2021-01-18] MEDS: morphine SULFATE 10 MG/ML, 1ML IVPush PRN ×2 (09:33→13:03)
[2021-01-18] MEDS: SODIUM CHLORIDE FLUSH 10ML SYR IVF SCH ×4 (09:37→21:38)
[2021-01-18] MEDS ORDERED: VANCOMYCIN 1,600 MG in SODIUM CHLORIDE 0.9% 250 ML IV SCH (12:00)
[2021-01-18] MEDS ORDERED: LIDOCAINE-MPF 1%, 5ML ONE (12:43)
[2021-01-18] MEDS: DIPHENHYDRAMINE 25 MG CAPSULE PO PRN (12:56)
[2021-01-18] MEDS: D5%-0.45NACL+KCL 20MEQ 1,000 ML IV SCH (20:07)
[2021-01-19] MEDS: morphine SULFATE 10 MG/ML, 1ML IVPush PRN ×3 (01:27→17:10)
[2021-01-19] MEDS: NOREPINEPHRINE 8 MG in SODIUM CHLORIDE 0.9% 242 ML IV PRN ×2 (01:43→13:52)
[2021-01-19 04:06] LABS: ALBUMIN 1.7 g/dL (3.4-5.0); ANION GAP 18 mmol/L (5-15); CALCIUM 7.7 mg/dL (8.5-10.1); CHLORIDE 104 mmol/L (98-107)
[2021-01-19] MEDS: POTASSIUM ACID PHOSPHATE 500 MG TABLET.SOL PO SCH ×4 (04:06→21:08)
[2021-01-19] MEDS: ACETAMINOPHEN 500 MG TABLET PO PRN (04:06)
[2021-01-19] MEDS: DIPHENHYDRAMINE 25 MG CAPSULE PO PRN ×2 (04:06→19:59)
[2021-01-19] MEDS: PIPERACILLIN/TAZO 3.375 GM in DEXTROSE 5% 50 ML IVPB SCH ×3 (04:06→20:15)
[2021-01-19 04:22] LABS: % IRON SATURATION 98 % (20-55); ALANINE AMINOTRANSFERASE 107 U/L (12-78); ALKALINE PHOSPHATASE 93 U/L (45-117); IRON LEVEL 83 mcg/dL (50-170); TOTAL IRON BINDING CAPACITY 85 mcg/dL (250-450)
[2021-01-19 04:30] LABS: CREATININE 2.19 mg/dL (0.55-1.02); TOTAL PROTEIN 5.3 g/dL (6.4-8.2)
[2021-01-19 04:31] LABS: BILIRUBIN,TOTAL 22.8 mg/dL (0.2-1.0)
[2021-01-19 07:14] LABS: MEAN CORPUSCULAR HGB CONC 30.7 g/dL (32.4-35.8); MEAN PLATELET VOLUME 8.2 fL (7.4-10.4); PLATELET COUNT 349 x10^3/uL (130-400); RED BLOOD COUNT 2.52 x10^6/uL (3.82-5.3); RED CELL DISTRIBUTION WIDTH 22.6 % (9.6-15.2)
[2021-01-19 07:57] LABS: ANISOCYTOSIS 1+; BANDS%(MANUAL) 5 % (0-7); LYMPH#(MANUAL) 1.32 x10^3/uL (1-3.4); LYMPHS% (MANUAL) 11 % (22-44); METAMYELOCYTES# (MANUAL) 0.12 x10^3/uL (0-0); METAMYELOCYTES% (MANUAL) 1 % (0-1); MONOS#(MANUAL) 0.72 x10^3/uL (0.3-2.7); MONOS% (MANUAL) 6 % (2-9); MYELOCYTES# (MANUAL) 0.24 x10^3/uL (0-0); MYELOCYTES% (MANUAL) 2 % (0-0); POLYCHROMASIA 1+; SEGS% (MANUAL) 75 % (42-75)
[2021-01-19 07:58] LABS: <PLATELET ESTIMATE> ADEQUATE; <PLT MORPHOLOGY> NORMAL PLT MORPH
[2021-01-19] MEDS: SODIUM CHLORIDE FLUSH 10ML SYR IVF SCH ×4 (09:00→21:00)
[2021-01-19] MEDS: RIFAXIMIN 550 MG TABLET PO SCH ×2 (10:15→19:59)
[2021-01-19] MEDS: HYDROCORTISONE 100 MG INJ. IV SCH ×3 (10:15→21:08)
[2021-01-19] MEDS: LACTULOSE 20 GM/30 ML UDC PO SCH ×3 (10:15→19:59)
[2021-01-19] MEDS: CHOLESTYRAMINE LIGHT 4GM PACKET PO SCH (10:15)
[2021-01-19] MEDS: ALBUMIN HUMAN 25% 100 ML IV SCH ×2 (10:16→17:53)
[2021-01-19 10:20] LABS: ALANINE AMINOTRANSFERASE 155 U/L (12-78); ALBUMIN 1.7 g/dL (3.4-5.0); ANION GAP 20 mmol/L (5-15); CALCIUM 7.8 mg/dL (8.5-10.1); CHLORIDE 106 mmol/L (98-107); INTERNATIONAL NORMALIZED RATIO 1.41 (0.93-1.1); PROTHROMBIN TIME 14.8 Seconds (9.6-11.5)
[2021-01-19 10:27] LABS: ALKALINE PHOSPHATASE 90 U/L (45-117); BILIRUBIN,INDIRECT 4.1 mg/dL (0.0-2.0)
[2021-01-19 10:28] LABS: CREATININE 2.43 mg/dL (0.55-1.02)
[2021-01-19 10:29] LABS: BILIRUBIN, DIRECT 19.7 mg/dL (0.1-0.2); BILIRUBIN,TOTAL 23.8 mg/dL (0.2-1.0)
[2021-01-19] MEDS ORDERED: DEXTROSE 5% IV ONE (10:30)
[2021-01-19] MEDS ORDERED: ACETYLCYSTEINE IV ONE (10:30)
[2021-01-19] MEDS: D5%-0.45NACL+KCL 20MEQ 1,000 ML IV SCH ×2 (10:34→23:17)
[2021-01-19] MEDS ORDERED: ACETYLCYSTEINE 15,000 MG in DEXTROSE 5% 200 ML IV ONE (11:00)
[2021-01-19] MEDS ORDERED: ACETYLCYSTEINE 5,000 MG in DEXTROSE 5% 500 ML IV ONE (12:00)
[2021-01-19] MEDS ORDERED: ACETYLCYSTEINE 10,000 MG in DEXTROSE 5% 1,000 ML IV ONE (16:00)
[2021-01-20] VITALS (11 sets, daily range): BP systolic 79–110; BP diastolic 48–66
[2021-01-20] MEDS: morphine SULFATE 10 MG/ML, 1ML IVPush PRN ×2 (01:07→04:10)
[2021-01-20] MEDS: ALBUMIN HUMAN 25% 100 ML IV SCH (01:08)
[2021-01-20] MEDS: HYDROCORTISONE 100 MG INJ. IV SCH ×4 (03:26→22:25)
[2021-01-20 03:47] LABS: ALANINE AMINOTRANSFERASE 169 U/L (12-78); ALBUMIN 2.4 g/dL (3.4-5.0); ANION GAP 28 mmol/L (5-15); CALCIUM 7.3 mg/dL (8.5-10.1); CHLORIDE 102 mmol/L (98-107)
[2021-01-20 03:55] LABS: ALKALINE PHOSPHATASE 60 U/L (45-117); CREATININE 2.39 mg/dL (0.55-1.02)
[2021-01-20 03:59] LABS: BILIRUBIN,TOTAL 24.5 mg/dL (0.2-1.0)
[2021-01-20] MEDS: POTASSIUM ACID PHOSPHATE 500 MG TABLET.SOL PO SCH (04:09)
[2021-01-20] MEDS: DIPHENHYDRAMINE 25 MG CAPSULE PO PRN (04:09)
[2021-01-20] MEDS: PIPERACILLIN/TAZO 3.375 GM in DEXTROSE 5% 50 ML IVPB SCH ×3 (04:09→20:50)
[2021-01-20 05:39] LABS: MEAN CORPUSCULAR HGB CONC 29.6 g/dL (32.4-35.8); MEAN PLATELET VOLUME 8.6 fL (7.4-10.4); PLATELET COUNT 243 x10^3/uL (130-400); RED BLOOD COUNT 1.33 x10^6/uL (3.82-5.3)
[2021-01-20 06:09] LABS: BAND#(MANUAL) 1.12 x10^3/uL; BANDS%(MANUAL) 8 % (0-7); LYMPHS% (MANUAL) 5 % (22-44); METAMYELOCYTES# (MANUAL) 0.42 x10^3/uL (0-0); METAMYELOCYTES% (MANUAL) 3 % (0-1); MONOS#(MANUAL) 0.56 x10^3/uL (0.3-2.7); MONOS% (MANUAL) 4 % (2-9); MYELOCYTES# (MANUAL) 0.14 x10^3/uL (0-0); MYELOCYTES% (MANUAL) 1 % (0-0); SEG#(MANUAL) 11.06 x10^3/uL (1.8-6.8); SEGS% (MANUAL) 79 % (42-75)
[2021-01-20 06:10] LABS: <PLATELET ESTIMATE> ADEQUATE; <PLT MORPHOLOGY> NORMAL PLT MORPH; ANISOCYTOSIS 1+; POLYCHROMASIA 1+
[2021-01-20 06:11] LABS: MICROCYTOSIS 1+
[2021-01-20] MEDS ORDERED: SODIUM BICARB 8.4%, 50ML SYRINGE IVPush ONE (07:00)
[2021-01-20] MEDS: SODIUM BICARBONATE 8.4% 150 MEQ in DEXTROSE 5% 1,000 ML IV SCH ×3 (07:41→21:23)
[2021-01-20] MEDS: SODIUM CHLORIDE FLUSH 10ML SYR IVF SCH ×4 (09:00→22:25)
[2021-01-20] MEDS: PANTOPRAZOLE 40 MG IV IVPush SCH ×2 (09:20→22:25)
[2021-01-20] MEDS: LACTULOSE 20 GM/30 ML UDC PO SCH ×3 (09:20→22:23)
[2021-01-20] MEDS: POTASSIUM CHLORIDE 20 MEQ TAB.ER.PRT PO SCH ×3 (09:20→22:24)
[2021-01-20] MEDS: RIFAXIMIN 550 MG TABLET PO SCH ×2 (09:21→22:25)
[2021-01-20] MEDS: CHOLESTYRAMINE LIGHT 4GM PACKET PO SCH (09:21)
[2021-01-20] MEDS: NOREPINEPHRINE 8 MG in SODIUM CHLORIDE 0.9% 242 ML IV PRN (09:54)
[2021-01-20] MEDS ORDERED: LIDOCAINE-MPF 1%, 2ML ENDO PRN (10:00)
[2021-01-20] MEDS ORDERED: PHARMACY MAY ADJ FOR RENAL FX MC SCH (10:00)
[2021-01-20] MEDS: FENTANYL PF 1,000 MCG in SODIUM CHLORIDE 0.9% 80 ML IV PRN (12:34)
[2021-01-20] MEDS ORDERED: ETOMIDATE 20 MG/10 ML ONE (13:37)
[2021-01-20] MEDS ORDERED: PROPOFOL 10 MG/ML, 100ML IV ONE (13:37)
[2021-01-20] MEDS ORDERED: SUCCINYLCHOLINE 20 MG/ML, 10ML ONE (13:37)
[2021-01-20] MEDS ORDERED: ALBUMIN HUMAN 25% 100 ML ONE (14:59)
[2021-01-20] MEDS ORDERED: ALBUMIN HUMAN 25% 100 ML IV PRN (15:30)
[2021-01-21] MEDS: FENTANYL PF 1,000 MCG in SODIUM CHLORIDE 0.9% 80 ML IV PRN ×2 (01:15→13:50)
[2021-01-21] MEDS: PIPERACILLIN/TAZO 3.375 GM in DEXTROSE 5% 50 ML IVPB SCH ×2 (03:34→13:56)
[2021-01-21 04:44] LABS: MEAN CORPUSCULAR HEMOGLOBIN 30.8 pg (27.0-34.8); MEAN CORPUSCULAR HGB CONC 34.3 g/dL (32.4-35.8); MEAN PLATELET VOLUME 9.5 fL (7.4-10.4); PLATELET COUNT 154 x10^3/uL (130-400); RED BLOOD COUNT 3.14 x10^6/uL (3.82-5.3); RED CELL DISTRIBUTION WIDTH 18.5 % (9.6-15.2)
[2021-01-21] MEDS: HYDROCORTISONE 100 MG INJ. IV SCH ×3 (04:49→20:41)
[2021-01-21 04:56] LABS: INTERNATIONAL NORMALIZED RATIO 2.16 (0.93-1.1); PROTHROMBIN TIME 22.3 Seconds (9.6-11.5)
[2021-01-21 05:05] LABS: ANION GAP 27 mmol/L (5-15); CALCIUM 6.6 mg/dL (8.5-10.1); CHLORIDE 93 mmol/L (98-107)
[2021-01-21 05:25] LABS: ALANINE AMINOTRANSFERASE 256 U/L (12-78); ALKALINE PHOSPHATASE 100 U/L (45-117)
[2021-01-21 05:27] LABS: CREATININE 2.54 mg/dL (0.55-1.02); TOTAL PROTEIN 3.6 g/dL (6.4-8.2)
[2021-01-21 05:28] LABS: BILIRUBIN,TOTAL 22.8 mg/dL (0.2-1.0)
[2021-01-21] MEDS: SODIUM BICARBONATE 8.4% 150 MEQ in DEXTROSE 5% 1,000 ML IV SCH ×3 (05:40→21:29)
[2021-01-21 05:45] LABS: BAND#(MANUAL) 2.35 x10^3/uL; BANDS%(MANUAL) 14 % (0-7); LYMPH#(MANUAL) 1.34 x10^3/uL (1-3.4); LYMPHS% (MANUAL) 8 % (22-44); METAMYELOCYTES% (MANUAL) 3 % (0-1); MONOS#(MANUAL) 1.18 x10^3/uL (0.3-2.7); MONOS% (MANUAL) 7 % (2-9); SEG#(MANUAL) 11.42 x10^3/uL (1.8-6.8); SEGS% (MANUAL) 68 % (42-75)
[2021-01-21 05:46] LABS: ANISOCYTOSIS 1+; MICROCYTOSIS 1+
[2021-01-21 05:47] LABS: OVALOCYTES 1+; POLYCHROMASIA 1+
[2021-01-21 05:48] LABS: <PLATELET ESTIMATE> ADEQUATE; LARGE PLATELETS 1+
[2021-01-21] MEDS: LACTULOSE 20 GM/30 ML UDC PO SCH ×3 (08:23→20:40)
[2021-01-21] MEDS: MIDODRINE 5 MG TABLET PO SCH ×3 (08:23→20:41)
[2021-01-21] MEDS: PANTOPRAZOLE 40 MG IV IVPush SCH ×2 (08:23→20:41)
[2021-01-21] MEDS: RIFAXIMIN 550 MG TABLET PO SCH ×2 (08:23→20:41)
[2021-01-21] MEDS: SODIUM CHLORIDE FLUSH 10ML SYR IVF SCH ×4 (08:31→20:42)
[2021-01-21] MEDS: NOREPINEPHRINE 32 MG in SODIUM CHLORIDE 0.9% 218 ML IV PRN ×2 (11:24→22:26)
[2021-01-21 14:23] LABS: ABSOLUTE RETICS # 0.142 x10^6/uL (0.5-2.5); RED BLOOD COUNT 2.97 x10^6/uL (3.82-5.3); RETICULOCYTE COUNT % 4.78 % (0.5-1.5)
[2021-01-21] MEDS: VASOPRESSIN 20 UNIT in SODIUM CHLORIDE 0.9% 99 ML IV PRN (20:04)
[2021-01-21] MEDS ORDERED: PROPOFOL 100 ML IV ONE (21:25)
[2021-01-21] MEDS: PIPERACILLIN/TAZO 2.25 GM in DEXTROSE 5% 50 ML IVPB SCH (21:29)
[2021-01-21] MEDS ORDERED: PROPOFOL 100 ML IV PRN (21:30)
[2021-01-22] MEDS: FENTANYL PF 1,000 MCG in SODIUM CHLORIDE 0.9% 80 ML IV PRN (00:25)
[2021-01-22] MEDS: VASOPRESSIN 20 UNIT in SODIUM CHLORIDE 0.9% 99 ML IV PRN (02:43)
[2021-01-22 04:06] LABS: ALBUMIN 1.5 g/dL (3.4-5.0); ANION GAP 28 mmol/L (5-15); CHLORIDE 92 mmol/L (98-107); INTERNATIONAL NORMALIZED RATIO 2.7 (0.93-1.1); PROTHROMBIN TIME 27.6 Seconds (9.6-11.5)
[2021-01-22 04:23] LABS: ALANINE AMINOTRANSFERASE 322 U/L (12-78); ALKALINE PHOSPHATASE 166 U/L (45-117)
[2021-01-22] MEDS: HYDROCORTISONE 100 MG INJ. IV SCH (04:37)
[2021-01-22 04:38] LABS: CREATININE 2.52 mg/dL (0.55-1.02); TOTAL PROTEIN 3.2 g/dL (6.4-8.2)
[2021-01-22] MEDS: PIPERACILLIN/TAZO 2.25 GM in DEXTROSE 5% 50 ML IVPB SCH (04:38)
[2021-01-22 04:40] LABS: CALCIUM 5.7 mg/dL (8.5-10.1)
[2021-01-22 05:13] LABS: MEAN CORPUSCULAR HGB CONC 32.2 g/dL (32.4-35.8); MEAN PLATELET VOLUME 10.3 fL (7.4-10.4); PLATELET COUNT 147 x10^3/uL (130-400); RED BLOOD COUNT 2.48 x10^6/uL (3.82-5.3); RED CELL DISTRIBUTION WIDTH 19.9 % (9.6-15.2)
[2021-01-22] MEDS ORDERED: CALCIUM GLUCONATE 4.6 MEQ in SODIUM CHLORIDE 0.9% 100 ML IV ONE (05:30)
[2021-01-22] MEDS ORDERED: CALCIUM GLUCONATE 4.6 MEQ/10 ML IVPB ONE (05:30)
[2021-01-22] MEDS: SODIUM BICARBONATE 8.4% 150 MEQ in DEXTROSE 5% 1,000 ML IV SCH (05:32)
[2021-01-22] MEDS ORDERED: SODIUM BICARB 8.4%, 50ML SYRINGE IVPush ONE (06:30)
[2021-01-22] MEDS ORDERED: MAGNESIUM SULFATE PMX 2GM/50ML 50 ML IV ONE (06:30)
[2021-01-22 06:43] LABS: ANISOCYTOSIS 1+; BAND#(MANUAL) 3.64 x10^3/uL; BANDS%(MANUAL) 13 % (0-7); LYMPH#(MANUAL) 5.88 x10^3/uL (1-3.4); LYMPHS% (MANUAL) 21 % (22-44); METAMYELOCYTES# (MANUAL) 3.08 x10^3/uL (0-0); METAMYELOCYTES% (MANUAL) 11 % (0-1); MONOS% (MANUAL) 5 % (2-9); MYELOCYTES# (MANUAL) 1.12 x10^3/uL (0-0); MYELOCYTES% (MANUAL) 4 % (0-0); PROGRANULOCYTES# (MANUAL) 0.56 x10^3/uL (0-0); PROGRANULOCYTES% (MANUAL) 2 % (0-0); SEG#(MANUAL) 12.32 x10^3/uL (1.8-6.8); SEGS% (MANUAL) 44 % (42-75)
[2021-01-22 06:44] LABS: <PLATELET ESTIMATE> ADEQUATE; MICROCYTOSIS 1+; OVALOCYTES 1+; POLYCHROMASIA 1+
[2021-01-22 06:47] LABS: <PLT MORPHOLOGY> NORMAL PLT MORPH
[2021-01-22] MEDS: PANTOPRAZOLE 40 MG IV IVPush SCH (08:46)
[2021-01-22] MEDS: RIFAXIMIN 550 MG TABLET PO SCH (08:47)
[2021-01-22] MEDS: SODIUM CHLORIDE FLUSH 10ML SYR IVF SCH ×2 (08:47→08:48)
[2021-01-22] MEDS: LACTULOSE 20 GM/30 ML UDC PO SCH (08:47)
[2021-01-22] MEDS: MIDODRINE 5 MG TABLET PO SCH (08:47)
[2021-01-22] MEDS: NOREPINEPHRINE 32 MG in SODIUM CHLORIDE 0.9% 218 ML IV PRN (08:59)
[2021-01-22] MEDS ORDERED: LORazepam 2 MG/ML, 1ML ONE (09:59)
[2021-01-22] MEDS ORDERED: LORazepam 2 MG/ML, 1ML IVPush PRN (10:00)
[2021-01-22] MEDS ORDERED: MORPHINE SULFATE 4 MG/ML, 1ML IVPush PRN (10:00)
[2021-01-22] MEDS ORDERED: LORazepam 2 MG/ML, 1ML IV ONE (10:00)
[2021-01-22] MEDS ORDERED: MORPHINE SULFATE 4 MG/ML, 1ML IV ONE (10:00)
[2021-01-22] MEDS ORDERED: ATROPINE OPHTH SOLN 1%, 5ML PO PRN (10:00)
[2021-01-22] MEDS ORDERED: morphine SULFATE 10 MG/ML, 1ML ONE (10:28)
[2021-01-22 16:51] LABS: ANA SCREEN POSITIVE (Negative)
== END 2021-01-22 10:42 | DRG 871 ==
LOC: ED 09:46 → EDIP 11:51 → CCU 13:25
PROVIDERS: ADMIT Hospitalist; ATTEND Internal Medicine
PROC: 0T9B30Z Drainage of Bladder with Drainage Device, Percutaneous Approach (ICD-10-PCS; principal; 2021-01-15)
PROC: 02HV33Z Insertion of Infusion Device into Superior Vena Cava, Percutaneous Approach (ICD-10-PCS; 2021-01-15)
PROC: 0FB03ZX Excision of Liver, Percutaneous Approach, Diagnostic (ICD-10-PCS; 2021-01-18)
PROC: 30233N1 Transfusion of Nonautologous Red Blood Cells into Peripheral Vein, Percutaneous Approach (ICD-10-PCS; 2021-01-20)
PROC: 06HY33Z Insertion of Infusion Device into Lower Vein, Percutaneous Approach (ICD-10-PCS; 2021-01-20)
PROC: 5A1D70Z Performance of Urinary Filtration, Intermittent, Less than 6 Hours Per Day (ICD-10-PCS; 2021-01-20)
DX: A41.9 Sepsis, unspecified organism (principal); J96.01 Acute respiratory failure with hypoxia; K72.01 Acute and subacute hepatic failure with coma; R65.21 Severe sepsis with septic shock; J18.1 Lobar pneumonia, unspecified organism; D68.9 Coagulation defect, unspecified; E27.40 Unspecified adrenocortical insufficiency; E87.1 Hypo-osmolality and hyponatremia; E87.2 Acidosis; L03.119 Cellulitis of unspecified part of limb; N39.0 Urinary tract infection, site not specified; Z68.41 Body mass index [BMI] 40.0-44.9, adult; Z94.4 Liver transplant status; Z51.5 Encounter for palliative care; B19.20 Unspecified viral hepatitis C without hepatic coma; B96.20 Unspecified Escherichia coli [E. coli] as the cause of diseases classified elsewhere; B96.89 Other specified bacterial agents as the cause of diseases classified elsewhere; D50.9 Iron deficiency anemia, unspecified; D63.8 Anemia in other chronic diseases classified elsewhere; E16.2 Hypoglycemia, unspecified; E66.01 Morbid (severe) obesity due to excess calories; E83.39 Other disorders of phosphorus metabolism; E83.42 Hypomagnesemia; E87.6 Hypokalemia; E87.70 Fluid overload, unspecified; E88.09 Other disorders of plasma-protein metabolism, not elsewhere classified; I12.9 Hypertensive chronic kidney disease with stage 1 through stage 4 chronic kidney disease, or unspecified chronic kidney disease; I27.20 Pulmonary hypertension, unspecified; B96.1 Klebsiella pneumoniae [K. pneumoniae] as the cause of diseases classified elsewhere; K21.9 Gastro-esophageal reflux disease without esophagitis; K75.81 Nonalcoholic steatohepatitis (NASH); K80.20 Calculus of gallbladder without cholecystitis without obstruction; L89.90 Pressure ulcer of unspecified site, unspecified stage; M10.9 Gout, unspecified; M19.90 Unspecified osteoarthritis, unspecified site; M89.8X9 Other specified disorders of bone, unspecified site; N18.9 Chronic kidney disease, unspecified; T38.0X5A Adverse effect of glucocorticoids and synthetic analogues, initial encounter; Z79.899 Other long term (current) drug therapy; Z79.891 Long term (current) use of opiate analgesic; Z79.01 Long term (current) use of anticoagulants
CPT/HCPCS: 36415; 36556; 36600; 47000; 71045; 76705; 76942; 80053; 80202; 80299; 80307; 81001; 82103; 82140; 82247; 82248; 82330; 82390; 82533; 82570; 82607; 82728; 82784; 82803; 82947; 82962; 83010; 83516; 83540; 83550; 83605; 83615; 83735; 83880; 83970; 84100; 84156; 84443; 84484; 84550; 85014; 85018; 85025; 85045; 85610; 85730; 86038; 86039; 86140; 86850; 86900; 86923; 87040; 87070; 87077; 87081; 87086; 87186; 87205; 88307; 88313; 90935; 93005; 94002; 94003; 94690; 96361; 96374; 96375; G0378; J0132; J0610; J1644; J2543; J2704; J3010; J3370; J3430; J7060; J7070; P9047; C9113; J0330; J1720; J2060; J2270; J3475; J3480; J7040; J7050; J7120; P9016; Q0163